=== PATIENT | male | born 1955 | race Hispanic/Latino ===

== ENCOUNTER 2018-01-04 08:06 | Emergency (ER) | payer SELFPAY ==
[2018-01-04] MEDS ORDERED: HYDROcodone/Acetaminophen 10/325 mg Tablet ONE (11:44)
[2018-01-04 12:04] LABS: #Eosinphils 0.1 thou/uL (0.0-0.7); #Lymphocytes 0.9 thou/uL (1.20-3.40); #Monocytes 0.6 thou/uL (0.11-0.59); #Neutrophils 7.4 thou/uL (1.40-6.50); %Basophils 0.2 % (0.0-1.0); %Eosinophils 0.6 % (0.0-10.0); %Lymphocytes 9.5 % (21.0-51.0); %Monocytes 6.8 % (0.0-10.0); %Neutrophils 82.9 % (42.0-75.0); Hemoglobin 16.2 g/dL (14.0-18.0); Mean Corpuscular HGB CONC 34.3 g/dL (32.0-36.0); Mean Corpuscular Hemoglobin 33.5 pg (27.0-31.0); Mean Corpuscular Volume 97.6 fL (78.0-98.0); Mean Platelet Volume 7.6 fL (7.4-10.4); Platelet Count 223 thou/uL (130-400); RBC Distribution Width 12.1 % (11.5-14.5); Red Blood Cell (RBC) Count 4.84 mill/uL (4.70-6.10)
[2018-01-04 12:26] LABS: ALT (SGPT) 33 U/L (8-55); AST (SGOT) 22 U/L (5-34); Albumin 3.9 g/dL (3.4-4.8); Alkaline Phosphatase 122 U/L (40-150); Anion Gap 15 mmol/L (10-20); BUN (Urea Nitrogen) 11 mg/dL (8.4-25.7); Bilirubin, Total 0.8 mg/dL (0.2-1.2); Calc. Creatinine Clearance 0 mL/min (70-130); Calcium 9.7 mg/dL (7.8-10.44); Carbon Dioxide 28 mmol/L (23-31); Chloride 97 mmol/L (98-107); Estimated GFR-MDRD Greater than 90; Globulin 3.6 g/dL (2.4-3.5); Glucose 334 mg/dL (80-115); Potassium 4.5 mmol/L (3.5-5.1); Protein, Total 7.5 g/dL (5.8-8.1); Sodium 135 mmol/L (136-145)
== END 2018-01-04 12:36 | disposition home or self-care (01) ==
LOC: ERS 08:06
DX: E11.40 Type 2 diabetes mellitus with diabetic neuropathy, unspecified (principal); E11.65 Type 2 diabetes mellitus with hyperglycemia
CPT/HCPCS: 36415; 80053; 85025; 99283

== ENCOUNTER 2019-06-21 21:46 | Emergency (ER) | payer OTHER ==
[2019-06-21] MEDS ORDERED: Ketorolac Tromethamine 30 MG/ML VIAL ONE (22:47)
[2019-06-21] MEDS ORDERED: Morphine 4 MG/ML VIAL ONE (22:47)
== END 2019-06-21 23:20 | disposition home or self-care (01) ==
LOC: ERS 21:46
DX: G89.29 Other chronic pain (principal); M25.512 Pain in left shoulder; E78.5 Hyperlipidemia, unspecified; I10 Essential (primary) hypertension; E11.40 Type 2 diabetes mellitus with diabetic neuropathy, unspecified; Z79.899 Other long term (current) drug therapy; Z79.4 Long term (current) use of insulin
CPT/HCPCS: 96372; 99283; J1885; J2270

== ENCOUNTER 2019-06-26 08:38 | Emergency (ER) | payer OTHER ==
[2019-06-26 09:34] LABS: #Eosinphils 0.1 thou/uL (0.0-0.7); #Lymphocytes 0.7 thou/uL (1.20-3.40); #Monocytes 0.7 thou/uL (0.11-0.59); #Neutrophils 8.8 thou/uL (1.40-6.50); %Basophils 0.1 % (0.0-1.0); %Eosinophils 1.1 % (0.0-10.0); %Lymphocytes 6.8 % (21.0-51.0); %Monocytes 6.4 % (0.0-10.0); %Neutrophils 85.6 % (42.0-75.0); Hemoglobin 14.2 g/dL (14.0-18.0); Mean Corpuscular HGB CONC 34.3 g/dL (32.0-36.0); Mean Corpuscular Hemoglobin 33.3 pg (27.0-31.0); Mean Corpuscular Volume 97.2 fL (78.0-98.0); Mean Platelet Volume 7.8 fL (7.4-10.4); Platelet Count 314 thou/uL (130-400); RBC Distribution Width 11.7 % (11.5-14.5); Red Blood Cell (RBC) Count 4.27 mill/uL (4.70-6.10); White Blood Cell (WBC) Count 10.2 thou/uL (4.8-10.8)
[2019-06-26 09:52] LABS: ALT (SGPT) 9 U/L (8-55); AST (SGOT) 10 U/L (5-34); Albumin 3.3 g/dL (3.4-4.8); Alkaline Phosphatase 113 U/L (40-110); Anion Gap 16 mmol/L (10-20); BUN (Urea Nitrogen) 15 mg/dL (8.4-25.7); Bilirubin, Total 0.6 mg/dL (0.2-1.2); Calc. Creatinine Clearance 0 mL/min (70-130); Calcium 8.6 mg/dL (7.8-10.44); Carbon Dioxide 28 mmol/L (23-31); Chloride 98 mmol/L (98-107); Estimated GFR-MDRD Greater than 90; Globulin 2.8 g/dL (2.4-3.5); Glucose 195 mg/dL (80-115); Potassium 4.5 mmol/L (3.5-5.1); Protein, Total 6.1 g/dL (5.8-8.1); Sodium 137 mmol/L (136-145)
[2019-06-26] MEDS ORDERED: predniSONE 20 MG TAB ONE (10:08)
== END 2019-06-26 10:18 | disposition home or self-care (01) ==
LOC: ERS 08:38
DX: M25.511 Pain in right shoulder (principal); G89.29 Other chronic pain; E11.9 Type 2 diabetes mellitus without complications; E78.5 Hyperlipidemia, unspecified; I10 Essential (primary) hypertension; Z79.899 Other long term (current) drug therapy; Z79.4 Long term (current) use of insulin
CPT/HCPCS: 36415; 80053; 82010; 85025; 93005; J7512

== ENCOUNTER 2020-06-04 19:35 | Inpatient (IN) | payer OTHER ==
[2020-06-04] MEDS ORDERED: Furosemide 100 MG/10 ML VIAL ONE (20:16)
[2020-06-04] MEDS ORDERED: Vancomycin 1 GM/200 ML BAG ONE (20:16)
[2020-06-04] MEDS ORDERED: Morphine 4 MG/ML VIAL ONE ×2 (20:17→21:42)
[2020-06-04 20:29] LABS: #Eosinphils 0.2 thou/uL (0.0-0.7); #Lymphocytes 0.7 thou/uL (1.20-3.40); #Monocytes 0.7 thou/uL (0.11-0.59); %Basophils 0.5 % (0.0-1.0); %Eosinophils 3.2 % (0.0-10.0); %Lymphocytes 9.2 % (21.0-51.0); %Monocytes 8.4 % (0.0-10.0); %Neutrophils 78.7 % (42.0-75.0); Hemoglobin 14.7 g/dL (14.0-18.0); Mean Corpuscular HGB CONC 34.3 g/dL (32.0-36.0); Mean Corpuscular Hemoglobin 32.9 pg (27.0-31.0); Mean Platelet Volume 8.2 fL (7.4-10.4); Platelet Count 312 thou/uL (130-400); RBC Distribution Width 12.2 % (11.5-14.5); Red Blood Cell (RBC) Count 4.46 mill/uL (4.70-6.10); White Blood Cell (WBC) Count 7.7 thou/uL (4.8-10.8)
[2020-06-04 20:31] LABS: Bilirubin Negative (Negative); Blood, Urine Negative (Negative); Clarity Clear (Clear); Glucose, Urine (Dipstick) 200 mg/dL (Negative); Ketone, Urine Negative (Negative); Leukocyte Negative Leu/uL (Negative); Nitrite Negative (Negative); Protein, Urine (Dipstick) Negative (Neg-Trace); Specific Gravity, Urine 1.006 (1.002-1.036); Urobilinogen Normal mg/dL (Less than 2)
--- NOTE | 2020-06-04 20:39 | RAD ---
RADIOGRAPH CHEST 1 VIEW: DATE: 06/04/2020 TIME: 8:29 PM HISTORY: 65-year-old male with dyspnea COMPARISON: none FINDINGS: There is an infiltrate at the right lung base. There is thickening of the right lateral lower pleural stripe contiguous with this. The rest of the visualized lung tian are grossly clear. No pneumothorax. IMPRESSION: 1) infiltrate at right base. Without prior studies for comparison, it is uncertain whether this is ac [place] or chronic. 2) adjacent right pleural reaction, either small pleural effusion or pleural thickening.
[2020-06-04 20:50] LABS: ALT (SGPT) 14 U/L (8-55); AST (SGOT) 15 U/L (5-34); Alkaline Phosphatase 123 U/L (40-110); Anion Gap 13 mmol/L (10-20); BUN (Urea Nitrogen) 12 mg/dL (8.4-25.7); Bilirubin, Total 0.3 mg/dL (0.2-1.2); CK (CPK) 67 U/L (30-200); Calc. Creatinine Clearance 0 mL/min (70-130); Calcium 8.5 mg/dL (7.8-10.44); Carbon Dioxide 34 mmol/L (23-31); Chloride 96 mmol/L (98-107); Globulin 2.9 g/dL (2.4-3.5); Glucose 248 mg/dL (80-115); Potassium 3.8 mmol/L (3.5-5.1); Protein, Total 5.9 g/dL (5.8-8.1); Sodium 139 mmol/L (136-145)
[2020-06-04] MEDS ORDERED: Cefepime 2 GM VIAL ONE (22:43)
[2020-06-04 23:01] LABS: SARS-CoV-2 NAA Rapid Test Not Detected (NotDetected)
[2020-06-04] MEDS ORDERED: Ondansetron ODT 4 MG TAB SL PRN (23:45)
[2020-06-04] MEDS ORDERED: Acetaminophen 325 MG TAB PO PRN (23:45)
[2020-06-04] MEDS ORDERED: Ondansetron PF 4 MG/2 ML Vial IVP PRN (23:45)
[2020-06-05 00:26] VITALS: BMI 33.8
[2020-06-05] MEDS ORDERED: Dextrose 50% Abboject 50 ML SYRINGE SLOW IVP PRN (00:26)
[2020-06-05] MEDS ORDERED: Dextrose 5% in Water 1,000 ML IV PRN (00:26)
[2020-06-05] MEDS: Morphine 2 MG/ML VIAL SLOW IVP PRN ×3 (01:38→20:23)
[2020-06-05] MEDS ORDERED: hydrALAZINE 20 MG/ML VIAL SLOW IVP PRN (02:04)
[2020-06-05] MEDS ORDERED: hydrALAZINE 20 MG/ML VIAL SLOW IVP SCH (02:15)
--- NOTE | 2020-06-05 02:57 | PDOC.HHP ---
Hospitalist HPI - History of Present Illness Bilateral leg pain History of Present Illness: This is a 65-year-old male patient with a history of type 2 diabetes mellitus with neuropathy, hypertension and hyperlipidemia who presents with worsening bilateral lower extremity pain. He notes that he has had neuropathy and bilateral lower extremity pain for several years only that in the past few days has become more swollen bilaterally red and more painful. Pain is diffuse in both legs bilaterally for 5-6 over 10 intensity and constant. He states it prevents him from being able to walk. He also had shortness of breath which was gradually worsening. He denied associated orthopnea paroxysmal nocturnal dyspnea. He notes having used gabapentin in the past for his leg pain but stopped. Given worsening of the pain in his lower extremities and swelling he came to the ED for further evaluation. He denied any associated fever, chest pain or dysuria. He denies any diarrhea however notes intermittent constipation. On arrival vitals showed BP of 211/107, pulse 97, respiratory 18, saturating 96% on room air. CBC was essentially within normal limits, BMP showed glucose of 248 otherwise not concerning. Urinalysis was negative, Covid test was negative. His chest x- ray revealed infiltrates in his right base with adjacent right pleural reactionpossible effusion. He was started on Lasix 80 mg, cefepime, vancomycin and levofloxacin. Hospitalist team consulted for admission. Hospitalist ROS - Review of Systems Constitutional: denies: fever, chills, sweats, weakness Respiratory: denies: cough, dry, shortness of breath, hemoptysis, SOB with excertion Cardiovascular: denies: chest pain, palpitations, orthopnea, paroxysmal noc. dyspnea Gastrointestinal: denies: nausea, vomiting, abdominal pain, diarrhea Genitourinary: denies: dysuria, frequency, incontinence Musculoskeletal: denies: neck pain, shoulder pain, arm pain, back pain Neurological: denies: weakness, numbness, incoordination All other systems reviewed; all pertinent +/- noted in HPI/Subj - Medication Medications: Active Medications Generic Name Dose Route Start Last Admin Trade Name Freq PRN Reason Stop Dose Admin Hydralazine HCl 10 mg 06/05/20 02:15 06/05/20 02:17 Hydralazine 20 Mg/Ml Vial SLOW IVP 06/05/20 04:15 10 mg NOW CRISTIN Administration Morphine Sulfate 2 mg 06/05/20 00:40 06/05/20 01:38 Morphine 2 Mg/Ml Vial SLOW IVP 2 mg Q6H PRN Administration Pain Medications: Currently refer to ambulatory [place]. Allergies: No known drug allergies Hospitalist History - Past Medical History Other Medical History: Diabetes, peripheral neuropathy - Past Surgical History Other Surgical History: Resection of part of his right lung - Family History Family History: reports: diabetes mellitus - Social History Smoking Status: Never smoker Alcohol: reports: Occassional Living Situation: With Family (This is his sister) - Exam General Appearance: awake alert General - other findings: In no acute distress. ENT: normocephalic atraumatic, no oropharyngeal lesions, moist mucosa Neck: supple, symmetric, no JVD, no thyromegaly Heart: RRR, no gallops, no rubs, murmur present (Ejection systolic) Respiratory: CTAB, no wheezes, no rales, no ronchi Gastrointestinal: soft, non-tender, non-distended, normal bowel sounds Extremities: no cyanosis, no clubbing, no edema Extremities - other findings: Bilateral lower extremity erythema. Occasional ulcers. Neurological: cranial nerve grossly intact, normal sensation to touch, no focal deficits Psychiatric: normal affect, normal behavior, A&O x 3 Hospitalist Results - Labs Result Diagrams: 06/05/20 05:28 06/06/20 05:25 Lab results: WBC 7.7 thou/uL (4.8-10.8) 06/04/20 20:09 Hgb 14.7 g/dL (14.0-18.0) 06/04/20 20:09 Hct 42.8 % (42.0-52.0) 06/04/20 20:09 MCV 96.0 fL (78.0-98.0) 06/04/20 20:09 Plt Count 312 thou/uL (130-400) 06/04/20 20:09 Neutrophils % 78.7 % (42.0-75.0) H 06/04/20 20:09 Sodium 139 mmol/L (136-145) 06/04/20 20:09 Potassium 3.8 mmol/L (3.5-5.1) 06/04/20 20:09 Chloride 96 mmol/L (98-107) L 06/04/20 20:09 Carbon Dioxide 34 mmol/L (23-31) H 06/04/20 20:09 BUN 12 mg/dL (8.4-25.7) 06/04/20 20:09 Creatinine 1.05 mg/dL (0.7-1.3) 06/04/20 20:09 Glucose 248 mg/dL (80-115) H 06/04/20 20:09 Lactic Acid 1.7 mmol/L (0.5-2.2) 06/04/20 20:09 Calcium 8.5 mg/dL (7.8-10.44) 06/04/20 20:09 Total Bilirubin 0.3 mg/dL (0.2-1.2) 06/04/20 20:09 AST 15 U/L (5-34) 06/04/20 20:09 ALT 14 U/L (8-55) 06/04/20 20:09 Alkaline Phosphatase 123 U/L (40-110) H 06/04/20 20:09 Creatine Kinase 67 U/L (30-200) 06/04/20 20:09 Serum Total Protein 5.9 g/dL (5.8-8.1) 06/04/20 20:09 Albumin 3.0 g/dL (3.4-4.8) L 06/04/20 20:09 Urine Ketones Negative mg/dL (Negative) 06/04/20 20:09 Urine Blood Negative (Negative) 06/04/20 20:09 Urine Nitrite Negative (Negative) 06/04/20 20:09 Ur Leukocyte Esterase Negative Mindy/uL (Negative) 06/04/20 20:09 Hospitalist H&P A/P - Plan Plan: This is a 65-year-old male patient with a history of diabetes mellitus presenting with ongoing bilateral lower leg erythema and swelling concerns for bilateral lower limb cellulitis associated with acute heart failure exacerbation.. Bilateral lower limb cellulitis. He has bilateral swelling and erythema with surface ulcers. Noted bilateral cellulitis is relatively where these do look like cellulitis. We will cover and on ceftriaxone for now Reevaluate in a.m. Follow-up on blood cultures. Possible right lower lobe pneumonia This could be atelectasis as well However covered on azithromycin for now Continue monitoring. Possible heart failure exacerbation Patient has no echo on file However has swelling of his feet bilaterally Diuresed 80 mg Lasix with improvement. We will order echocardiogram, BNP Monitor Cardiology consult if indicated. Diabetes mellitus Check A1c Correctional insulin Starting gabapentin for peripheral neuropathy Monitor glucose. VT prophylaxisLovenox CODE STATUSfull code
--- NOTE | 2020-06-05 03:21 | PDOC.FMACP ---
Advance Care Planning - Note Summary: Advanced Care Planning was discussed. The diagnosis, prognosis and goals of care were discussed. Patient surrogate decision-maker is his twin sister was in the room with him. CODE STATUS is full code
[2020-06-05 05:48] LABS: #Eosinphils 0.3 thou/uL (0.0-0.7); #Lymphocytes 0.6 thou/uL (1.20-3.40); #Monocytes 0.9 thou/uL (0.11-0.59); #Neutrophils 7.4 thou/uL (1.40-6.50); %Lymphocytes 6.6 % (21.0-51.0); %Monocytes 9.8 % (0.0-10.0); %Neutrophils 80.6 % (42.0-75.0); Hemoglobin 13.8 g/dL (14.0-18.0); Mean Corpuscular HGB CONC 34.9 g/dL (32.0-36.0); Mean Corpuscular Hemoglobin 33.8 pg (27.0-31.0); Mean Corpuscular Volume 96.8 fL (78.0-98.0); Mean Platelet Volume 8.2 fL (7.4-10.4); Platelet Count 280 thou/uL (130-400); RBC Distribution Width 12.1 % (11.5-14.5); Red Blood Cell (RBC) Count 4.08 mill/uL (4.70-6.10); White Blood Cell (WBC) Count 9.2 thou/uL (4.8-10.8)
[2020-06-05] MEDS ORDERED: Gabapentin 100 MG CAP PO SCH (09:00)
[2020-06-05] MEDS ORDERED: Furosemide 40 MG/4 ML VIAL SLOW IVP SCH (09:00)
[2020-06-05] MEDS: Enoxaparin Sodium 40 MG/0.4 ML SYRINGE SC SCH (09:42)
[2020-06-05] MEDS: cefTRIAXone\\ROCEPHIN 1 GM in Sodium Chloride 0.9% 100 ML IVPB SCH (09:44)
[2020-06-05] MEDS: Azithromycin 500 MG in Sodium Chloride 0.9% 250 ML 250 ML IVPB SCH (11:19)
--- NOTE | 2020-06-05 19:38 | PDOC.HOSPP ---
- Subjective Encounter Date: 06/05/20 Encounter Time: 19:20 Subjective: f/u for BLE cellulitis/edema on current Rocephin/Zithromax. States longstanding but progressive LE and hand pain in context of DM. - Objective Vital Signs & Weight: Vital Signs (12 hours) Temp Pulse Resp BP Pulse Ox 06/05/20 11:58 98.3 F 84 16 151/84 H 97 Weight Weight 216 lb 3.2 oz Result Diagrams: 06/05/20 05:28 06/04/20 20:09 Additional Labs: Accuchecks 06/05/20 06/05/20 06/05/20 16:23 12:01 06:04 POC Glucose 203 H 226 H 161 H Microbiology 06/04/20 20:09 Venous blood - Right Arm Blood Culture - Preliminary Specimen has been received and culture in progress. No Growth to date. 06/04/20 20:09 Venous blood - Left Arm Blood Culture - Preliminary Specimen has been received and culture in progress. No Growth to date. 06/04/20 20:09 Urine voided Urine Culture - Preliminary Streptococcus agalactiae Gp. B Laboratory Tests 06/04/20 06/04/20 06/05/20 20:09 21:35 05:28 Lactic Acid 1.7 B-Natriuretic Peptide 83.0 SARS-CoV-2 Rap RNA(RT-PCR) Not Detected Radiology Reviewed by me: Yes (Echo - EF 55%, diast dysfunction) Hospitalist ROS - Medication Medications: Active Medications Generic Name Dose Route Start Last Admin Trade Name Freq PRN Reason Stop Dose Admin Enoxaparin Sodium 40 mg 06/05/20 09:00 06/05/20 09:42 Enoxaparin Sodium 40 Mg/0.4 Ml Syringe SC 40 mg 0900 CRISTIN Administration Furosemide 40 mg 06/05/20 09:00 06/05/20 09:43 Furosemide 40 Mg/4 Ml Vial SLOW IVP 40 mg DAILY CRISTIN Administration Gabapentin 100 mg 06/05/20 09:00 06/05/20 09:44 Gabapentin 100 Mg Cap PO 100 mg DAILY CRISTIN Administration Azithromycin 500 mg/ Sodium 250 mls @ 250 mls/hr 06/05/20 09:00 06/05/20 11:19 Chloride IVPB 250 mls Q24HR CRISTIN Administration Ceftriaxone Sodium 1 gm/ 100 mls @ 200 mls/hr 06/05/20 09:00 06/05/20 09:44 Sodium Chloride IVPB 100 mls Q24HR CRISTIN Administration Morphine Sulfate 2 mg 06/05/20 00:40 06/05/20 09:43 Morphine 2 Mg/Ml Vial SLOW IVP 2 mg Q6H PRN Administration Pain - Exam General Appearance: NAD, awake alert Eye: PERRL, anicteric sclera ENT: normocephalic atraumatic, no oropharyngeal lesions Neck: supple, symmetric, no JVD, no thyromegaly, no lymphadenopathy Heart: RRR, no murmur, no gallops, no rubs, normal peripheral pulses Heart - other findings: S1, S2 Respiratory: CTAB, no wheezes, no rales, no ronchi, normal chest expansion Gastrointestinal: soft, non-tender, non-distended, normal bowel sounds, no palpable masses Extremities: no cyanosis, 1+ LE edema Skin - other findings: mild erythema of BLE's Neurological: cranial nerve grossly intact, no new deficit Musculoskeletal: normal tone, generalized weakness Psychiatric: normal affect, A&O x 3 Hosp A/P (1) Bilateral lower leg cellulitis Code(s): L03.116 - CELLULITIS OF LEFT LOWER LIMB; L03.115 - CELLULITIS OF RIGHT LOWER LIMB Status: Acute Plan: Continue Rocephin/Zithromax, serial monitoring, elevate LE's (2) DM type 2 with diabetic peripheral neuropathy Code(s): E11.42 - TYPE 2 DIABETES MELLITUS WITH DIABETIC POLYNEUROPATHY Status: Chronic Plan: Gabapentin 100mg po TID, Tramadol (3) CKD (chronic kidney disease), stage II Code(s): N18.2 - CHRONIC KIDNEY DISEASE, STAGE 2 (MILD) Status: Chronic Plan: Avoid nephrotoxic meds and limit contrast exposure (4) Diabetes mellitus, type II, insulin dependent Code(s): E11.9 - TYPE 2 DIABETES MELLITUS WITHOUT COMPLICATIONS; Z79.4 - FPC (CURRENT) USE OF INSULIN Status: Chronic Plan: Resume home insulin regimen, ISS, ADA, serial accuchecks (5) HTN (hypertension) Code(s): I10 - ESSENTIAL (PRIMARY) HYPERTENSION Status: Chronic Qualifiers: Hypertension type: essential hypertension Qualified Code(s): I10 - Essential (primary) hypertension - Plan continue antibiotics, out of bed/ambulate, DVT proph w/SCDs Stable overall Continue Torsemide Start Gabapentin 100mg TID Continue Tramadol OOB/ambulate Continue Rocephin/Zithromax AM lab: BMP, A1C
[2020-06-05] MEDS: Senokot S 8.6-50 MG TAB PO SCH (20:22)
[2020-06-05] MEDS: Gabapentin 100 MG CAP PO SCH (20:22)
[2020-06-05] MEDS: Atorvastatin Calcium 20 MG TAB PO SCH (20:22)
[2020-06-05] MEDS: Carvedilol 6.25 MG TAB PO SCH (20:23)
[2020-06-05] MEDS: traMADol HCl 50 MG TAB PO PRN (20:23)
[2020-06-05] MEDS ORDERED: Non-Formulary Item 1 EACH (Insulin Glargine,Hum.Rec.Anlog [Lantus Solostar] 100 UNIT/ML P SQ SCH (21:00)
[2020-06-05] MEDS ORDERED: Pregabalin 50 MG CAP PO SCH (21:00)
[2020-06-05] MEDS: Insulin Glargine 10 UNITS in Pre-Filled Syringe 1 EACH SC SCH (22:50)
[2020-06-05] MEDS ORDERED: HumaLOG 300 UNITS/3 ML VIAL SC PRN (23:00)
[2020-06-06] MEDS: traMADol HCl 50 MG TAB PO PRN ×2 (03:48→20:46)
[2020-06-06 05:44] LABS: Hemoglobin A1c 7.8 % (4.0-6.0)
[2020-06-06] MEDS: HumaLOG 300 UNITS/3 ML VIAL SC PRN ×3 (05:52→17:02)
[2020-06-06 06:04] LABS: Anion Gap 12 mmol/L (10-20); BUN (Urea Nitrogen) 10 mg/dL (8.4-25.7); Calc. Creatinine Clearance 155 mL/min (70-130); Calcium 8.1 mg/dL (7.8-10.44); Carbon Dioxide 29 mmol/L (23-31); Glucose 182 mg/dL (80-115); Potassium 3.8 mmol/L (3.5-5.1); Sodium 136 mmol/L (136-145)
[2020-06-06 06:10] LABS: Chloride 99 mmol/L (98-107)
[2020-06-06] MEDS ORDERED: Non-Formulary Item 1 EACH (Insulin Glargine,Hum.Rec.Anlog [Lantus Solostar] 100 UNIT/ML P SQ SCH (09:00)
[2020-06-06] MEDS: cefTRIAXone\\ROCEPHIN 1 GM in Sodium Chloride 0.9% 100 ML IVPB SCH (09:30)
[2020-06-06] MEDS: Enoxaparin Sodium 40 MG/0.4 ML SYRINGE SC SCH (09:31)
[2020-06-06] MEDS: Torsemide 20 MG TAB PO SCH (09:31)
[2020-06-06] MEDS: Carvedilol 6.25 MG TAB PO SCH ×2 (09:31→20:46)
[2020-06-06] MEDS: Senokot S 8.6-50 MG TAB PO SCH ×2 (09:31→20:45)
[2020-06-06] MEDS: Gabapentin 100 MG CAP PO SCH ×3 (09:31→20:45)
[2020-06-06] MEDS: Insulin Glargine 10 UNITS in Pre-Filled Syringe 1 EACH SC SCH ×2 (09:32→20:46)
[2020-06-06] MEDS: Azithromycin 500 MG in Sodium Chloride 0.9% 250 ML 250 ML IVPB SCH (10:59)
--- NOTE | 2020-06-06 16:15 | PDOC.HOSPP ---
- Subjective Encounter Date: 06/06/20 Encounter Time: 16:05 Subjective: f/u for BLE cellulitis and DM peripheral neuropathy. Receiving Rocephin/Zithromax/Gabapentin. Overall feeling much better. - Objective Vital Signs & Weight: Vital Signs (12 hours) Temp Pulse Resp BP BP Pulse Ox 06/06/20 15:09 98.1 F 75 16 145/81 H 96 06/06/20 10:52 98.1 F 74 16 159/92 H 96 06/06/20 09:31 161/82 H 06/06/20 08:00 96 06/06/20 07:21 98.1 F 82 16 161/82 H 94 L 06/06/20 04:56 97.9 F 74 18 152/83 H 97 Weight Weight 216 lb 3.2 oz I&O: 06/05/20 06/06/20 06/07/20 06:59 06:59 06:59 Intake Total 3130 Balance 3130 Result Diagrams: 06/05/20 05:28 06/06/20 05:25 Additional Labs: Accuchecks 06/06/20 06/06/20 06/06/20 15:11 10:54 05:00 POC Glucose 215 H 169 H 201 H 06/05/20 06/05/20 20:57 16:23 POC Glucose 164 H 203 H Radiology Reviewed by me: Yes (Echo - EF 55-60%) Hospitalist ROS - Medication Medications: Active Medications Generic Name Dose Route Start Last Admin Trade Name Freq PRN Reason Stop Dose Admin Atorvastatin Calcium 20 mg 06/05/20 21:00 06/05/20 20:22 Atorvastatin Calcium 20 Mg Tab PO 20 mg HS CRISTIN Administration Carvedilol 6.25 mg 06/05/20 21:00 06/06/20 09:31 Carvedilol 6.25 Mg Tab PO 6.25 mg BID CRISTIN Administration Enoxaparin Sodium 40 mg 06/05/20 09:00 06/06/20 09:31 Enoxaparin Sodium 40 Mg/0.4 Ml Syringe SC 40 mg 0900 CRISTIN Administration Gabapentin 100 mg 06/05/20 21:00 06/06/20 15:03 Gabapentin 100 Mg Cap PO 100 mg TID CRISTIN Administration Azithromycin 500 mg/ Sodium 250 mls @ 250 mls/hr 06/05/20 09:00 06/06/20 10:59 Chloride IVPB 250 mls Q24HR CRISTIN Administration Ceftriaxone Sodium 1 gm/ 100 mls @ 200 mls/hr 06/05/20 09:00 06/06/20 09:30 Sodium Chloride IVPB 100 mls Q24HR CRISTIN Administration Insulin Glargine 10 units/ 0.1 mls @ 0 mls/hr 06/05/20 21:00 06/05/20 22:50 Miscellaneous Medication SC 0.1 mls HS CRISTIN Administration Insulin Glargine 10 units/ 0.1 mls @ 0 mls/hr 06/06/20 09:00 06/06/20 09:32 Miscellaneous Medication SC 0.1 mls QAM CRISTIN Administration Insulin Human Lispro 0 units 06/05/20 23:00 06/06/20 12:14 Humalog 300 Units/3 Ml Vial SC 2 unit .MODERATE SLIDING SC PRN Administration MODERATE SLIDING SCALE Protocol Morphine Sulfate 2 mg 06/05/20 00:40 06/05/20 20:23 Morphine 2 Mg/Ml Vial SLOW IVP 2 mg Q6H PRN Administration Pain Senna/Docusate Sodium 1 tab 06/05/20 21:00 06/06/20 09:31 Senokot S 8.6-50 Mg Tab PO 1 tab BID CRISTIN Administration Torsemide 40 mg 06/06/20 09:00 06/06/20 09:31 Torsemide 20 Mg Tab PO 40 mg DAILY CRISTIN Administration Tramadol HCl 50 mg 06/05/20 19:38 06/06/20 03:48 Tramadol Hcl 50 Mg Tab PO 50 mg Q6H PRN Administration Pain - Exam General Appearance: NAD, awake alert Eye: PERRL, anicteric sclera ENT: normocephalic atraumatic, no oropharyngeal lesions Neck: supple, symmetric, no JVD, no thyromegaly, no lymphadenopathy Heart: RRR, no murmur, no gallops, no rubs, normal peripheral pulses Heart - other findings: S1, S2 Respiratory: CTAB, no wheezes, no rales, no ronchi, normal chest expansion, no tachypnea Gastrointestinal: soft, non-tender, non-distended, normal bowel sounds, no palpable masses Extremities: no cyanosis, no clubbing Extremities - other findings: BLE with mild edema Skin: normal turgor Skin - other findings: scaling plaques on BLE's Neurological: cranial nerve grossly intact, no new deficit Musculoskeletal: normal tone, normal strength Psychiatric: normal affect, A&O x 3 Hosp A/P (1) Bilateral lower leg cellulitis Code(s): L03.116 - CELLULITIS OF LEFT LOWER LIMB; L03.115 - CELLULITIS OF RIGHT LOWER LIMB Status: Acute Plan: Improving, continue Rocephin/Zithromax, elevate LE's while in bed/seated (2) DM type 2 with diabetic peripheral neuropathy Code(s): E11.42 - TYPE 2 DIABETES MELLITUS WITH DIABETIC POLYNEUROPATHY Status: Chronic Plan: Continue Gabapentin/Tramadol (3) CKD (chronic kidney disease), stage II Code(s): N18.2 - CHRONIC KIDNEY DISEASE, STAGE 2 (MILD) Status: Chronic (4) Diabetes mellitus, type II, insulin dependent Code(s): E11.9 - TYPE 2 DIABETES MELLITUS WITHOUT COMPLICATIONS; Z79.4 - [facility] (CURRENT) USE OF INSULIN Status: Chronic Plan: A1C = 7.8, ISS, resume home DM regimen (5) HTN (hypertension) Code(s): I10 - ESSENTIAL (PRIMARY) HYPERTENSION Status: Chronic Qualifiers: Hypertension type: essential hypertension Qualified Code(s): I10 - Essential (primary) hypertension - Plan plan discussed w/ family, continue antibiotics, rn social work, out of bed/ambulate, DVT proph w/SCDs Stable overall Continue Torsemide Start Gabapentin 100mg TID Continue Tramadol OOB/ambulate Continue Rocephin/Zithromax another 24h then de-escalate Likely home in 24h
[2020-06-06] MEDS: Atorvastatin Calcium 20 MG TAB PO SCH (20:46)
[2020-06-07 00:18] VITALS: TEMP 98.1
[2020-06-07] MEDS: Torsemide 20 MG TAB PO SCH (09:06)
[2020-06-07] MEDS: Enoxaparin Sodium 40 MG/0.4 ML SYRINGE SC SCH (09:06)
[2020-06-07] MEDS: Azithromycin 500 MG in Sodium Chloride 0.9% 250 ML 250 ML IVPB SCH (09:06)
[2020-06-07] MEDS: Gabapentin 100 MG CAP PO SCH (09:07)
[2020-06-07] MEDS: Insulin Glargine 10 UNITS in Pre-Filled Syringe 1 EACH SC SCH (09:07)
[2020-06-07] MEDS: Senokot S 8.6-50 MG TAB PO SCH (09:07)
[2020-06-07] MEDS: Carvedilol 6.25 MG TAB PO SCH (09:07)
[2020-06-07] MEDS: traMADol HCl 50 MG TAB PO PRN (09:14)
[2020-06-07] MEDS: cefTRIAXone\\ROCEPHIN 1 GM in Sodium Chloride 0.9% 100 ML IVPB SCH (09:15)
[2020-06-07 09:22] VITALS: BP 138/73
--- NOTE | 2020-06-07 13:56 | PQF ---
CLINICAL DOCUMENTATION CLARIFICATION FORM: Dear Dr. Carranza Date: 06/07/20 Please exercise your independent, professional judgment in responding to the clarification form. Clinical indicators are provided on the bottom of this form for your review. Please check appropriate box(es) to clarify if the following diagnosis has been ruled in our ruled out: PNEUMONIA [ ] Ruled in diagnosis [ ] Continue to treat [ ] Resolved [ x ] Ruled out diagnosis [ ] Improving [ ] Cannot rule out diagnosis [ ] Other diagnosis [ ] Unable to determine In addition, please specify: Present on Admission (POA): [ ] Yes [ x ] No [ ] Unable to determine For continuity of documentation, please document condition throughout progress notes and discharge summary. Thank You. To be completed by CDI/Coding staff for physician review: CLINICAL INDICATORS - SIGNS / SYMPTOMS / LABS / RESULTS AND LOCATION IN MR ER NOTE: "PNEUMONIA" H&P 06/05 ([facility]): "SHORTNESS OF BREATH GRADUALLY WORSENING" CHEST X-RAY REVEALED INFILTRATES IN HIS RIGHT BASE WITH ADJACENT RIGHT PLEURAL REACTION- POSSIBLE EFFUSION" RISK FACTORS / RESULTS AND LOCATION IN MR H/O DIABETES (H&P) H/O RESECTION OF RIGHT LUNG (H&P) TREATMENTS / RESULTS AND LOCATION IN MR IV CEFEPIME (ER) IV LEVAQUIN (ER) IV VANCOMYCIN (ER) IV AZITHROMYCIN (06/05-PRESENT) IV ROCEPHIN (06/05-PRESENT) CDS Signature: Rosemary Conti RN Phone #: [phone] Date: 06/07/20 DENISSE
--- NOTE | 2020-06-08 07:59 | DIS ---
DATE OF ADMISSION: 06/04/2020 DATE OF DISCHARGE: 06/07/2020 DISCHARGE DIAGNOSES: 1. Bilateral lower extremity cellulitis, improved. 2. Diabetic peripheral neuropathy. 3. Chronic kidney disease, stage 2. 4. Diabetes mellitus, type 2, insulin dependent. 5. Hypertension. CONSULTATIONS: None. PERTINENT LABORATORY AND X-RAY FINDINGS: Creatinine ranged between 0.67 to 1.05. Hemoglobin A1c 7.8. Lactic acid level 1.7. Total CK 67. BNP 83. CBC showed a white blood cell count ranging between 7.7 to 9.2. COVID-19 PCR not detected on 06/04/2020. Urine culture dated 06/04/2020, showed 25,000 to 50,000 colonies of Streptococcus agalactiae group B, likely contaminant. Blood cultures x2 dated 06/04/2020, showed no growth at 48 hours. Portable chest x-ray dated 06/04/2020, showed questionable right basilar infiltrate versus atelectasis or scarring. 2D transthoracic echocardiogram dated 06/05/2020, showed ejection fraction of 55% to 60%. Diastolic dysfunction. [id number] aortic stenosis. Stcv-[id number] mitral regurgitation. HOSPITAL COURSE: The patient was admitted to the medical floor after initially presenting with bilateral lower extremity leg pain with swelling and redness. The patient with history of diabetic peripheral neuropathy and chronic lower extremity pain, treated with gabapentin in the past. The patient was evaluated and noted with evidence of bilateral lower extremity cellulitis in conjunction with lower extremity edema. The patient was placed on IV Rocephin and azithromycin and given sequential compression devices. The patient was also initiated on gabapentin 100 mg t.i.d. and tramadol 50 mg q.i.d. The patient overall clinically improved with general supportive management, IV antibiotic therapy, and pain control. The patient may need additional titration of his gabapentin on an ongoing basis after discharge. I have examined the patient at the time of discharge and discussed followup instructions. The patient verbalizes understanding and in agreement and ready for discharge on 06/07/2020. DISCHARGE MEDICATIONS: 1. Augmentin 500 mg one tablet p.o. b.i.d. x7 days. 2. Coreg 6.25 mg p.o. b.i.d. 3. Metformin 1000 mg p.o. b.i.d. 4. Lantus 10 units subcutaneously at bedtime. 5. Lipitor 20 mg p.o. daily. 6. Torsemide 40 mg p.o. daily. 7. Tramadol 50 mg p.o. q.6 hours p.r.n. pain. 8. Gabapentin 100 mg p.o. t.i.d. FOLLOWUP: The patient may follow up with his primary care provider, Sondra Harris, within 7 days of discharge. CONDITION ON DISCHARGE: Stable. ACTIVITY: Ad-riley. DIET: ADA and heart healthy. CODE STATUS: Full. DISPOSITION: Home, 06/07/2020. TIME SPENT: Total time preparing and coordinating discharge, 33 minutes. Job ID: [id number]
--- NOTE | 2020-06-09 06:44 | PQF ---
CLINICAL DOCUMENTATION CLARIFICATION FORM: Dear DrSandrine: Osman Carranza Date / Time: 06/09/2020 06 Please exercise your independent, professional judgment in responding to the clarification form. Clinical indicators are provided on the bottom of this form for your review In your clinical opinion based on clinical finding below, can you please identify the etiology of Cellulitis if due to: Please check appropriate box(s): [ ] Due to Peripheral Neuropathy [ ] Due to Diabetes [ x ] Other diagnosis, please specify _edema [ ] Unable to determine Physician Signature: Date/Time: For continuity of documentation, please document condition throughout progress notes and discharge summary. Thank You. To be completed by CDI/Coding staff for physician review: Present Clinical Indicators - Signs / Symptoms / Labs Results and Location in Medical Record [X] WBC 7.7, Hct 14.7, hct 42.8Neutrophils 78.7, Glucose 248 Laboratory 06/04 [X] BP 211/107, Pulse 95, Resp 18, Temp 98.5 Vital signs 06/04 [X] Worsening bilateral lower extremity pain H&P p1 06/04 Dr Kenny [X] Swelling of lower extremities H&P p1 06/04 Dr Kenny [X] Bilateral lower limb cellulitis H&P p4 06/04 Dr Kenny Present Risk Factors Results and Location in Medical Record [X] 65 year-old Male H&P p1 06/04 Dr Kenny [X] DM with Neuropathy H&P p1 06/04 Dr Kenny [X] HTN H&P p1 06/04 Dr Kenny Present Treatments Results and Location in Medical Record [X] IV Vancomycin 1 gm AUG 20 [X] IV Levaquin 750 mg AUG 20 [X] IV Morphine 4 gm AUG 20 [X] Humulog 4 units AUG 20 [X] Insulin Glarhine 10 units AUG 20 [X] Monitor Glucose H&P p4 06/04 Dr Kenny CDS/Core Cutter And Reamer Signature: Aimee Zainab Diaz Phone #: ext [phone] Date/Time: 06/09/2020 0643 This is a permanent part of the Medical Record [facility]
--- NOTE | 2020-06-09 06:46 | PQF ---
CLINICAL DOCUMENTATION CLARIFICATION FORM: Dear DrSandrine: Osman Carranza Date / Time: 06/09/2020 0626 Please exercise your independent, professional judgment in responding to the clarification form. Clinical indicators are provided on the bottom of this form for your review Please check appropriate box(es): HEART FAILURE: A. ACUITY [ ] Acute [ ] Acute on Chronic [ ] Chronic B. TYPE: [ ] Systolic / HFrEF [ ] Diastolic / HFpEF [ ] Combined Systolic / Diastolic [ x ] Other diagnosis __CKD II, HTN [ ] Unable to determine In addition, please specify: Present on Admission (POA): [ x ] Yes [ ] No [ ] Unable to determine Physician Signature: Date/Time: For continuity of documentation, please document condition throughout progress notes and discharge summary. Thank You. To be completed by CDI/Coding staff for physician review: Present Clinical Indicators - Signs / Symptoms / Labs Results and Location in Medical Record [X] BNP 83.0 Laboratory 06/04 [X] BP 211/107, Pulse 95, Resp 18, Temp 98.5 Vital signs 06/04 [X] Echocardiohram: EF 55-60% Imaging 06/05 Dr Burrows [X] Worsening bilateral lower extremity pain H&P p1 06/04 Dr Kenny [X] Swelling of lower extremities H&P p1 06/04 Dr Kenny [X] Possible heart failure exacerbation H&P p4 06/04 Dr Kenny Present Risk Factors Results and Location in Medical Record [X] 65 year-old Male H&P p1 06/04 Dr Kenny [X] DM with Neuropathy H&P p1 06/04 Dr Kenny [X] HTN H&P p1 06/04 Dr Kenny [X] CKD stage 2 PN 06/05 Present Treatments Results and Location in Medical Record [X] IV Lasix 40 mg AUG 20 [X] Monitor echocargiogram , BNP H&P p4 06/04 Dr Kenny [X] Carvedilol 6.25mg Oral AUG 20 CDS/Senior Developer Signature: Aimee Diaz Phone #: ext [phone] Date/Time: 06/09/2020 6548 This is a permanent part of the Medical Record [facility]
== END 2020-06-07 14:45 | disposition home or self-care (01) | DRG 603 ==
LOC: ERS 19:35 → SURG B 22:49
PROVIDERS: ADMIT Student in an Organized Health Care Education/Training Program; ATTEND Student in an Organized Health Care Education/Training Program
DX: L03.116 Cellulitis of left lower limb (principal); L03.115 Cellulitis of right lower limb; Z20.828 Contact with and (suspected) exposure to other viral communicable diseases; E11.42 Type 2 diabetes mellitus with diabetic polyneuropathy; E11.22 Type 2 diabetes mellitus with diabetic chronic kidney disease; N18.2 Chronic kidney disease, stage 2 (mild); I12.9 Hypertensive chronic kidney disease with stage 1 through stage 4 chronic kidney disease, or unspecified chronic kidney disease; Z83.3 Family history of diabetes mellitus; Z79.899 Other long term (current) drug therapy; Z79.4 Long term (current) use of insulin
CPT/HCPCS: 36415; 36416; 71045; 80048; 80053; 81003; 82550; 83036; 83605; 83880; 85007; 85025; 85027; 87040; 87077; 87086; 93005; 93306; J0360; J0456; J0692; J0696; J1650; J1815; J1940; J1956; J2270; J3370; J3490; J7050; U0002

== ENCOUNTER 2020-06-18 12:50 | Emergency (ER) | payer OTHER ==
[2020-06-18 13:58] LABS: #Eosinphils 0.2 thou/uL (0.0-0.7); #Lymphocytes 0.6 thou/uL (1.20-3.40); #Monocytes 0.4 thou/uL (0.11-0.59); #Neutrophils 6.9 thou/uL (1.40-6.50); %Basophils 0.2 % (0.0-1.0); %Eosinophils 2.6 % (0.0-10.0); %Lymphocytes 7.7 % (21.0-51.0); %Monocytes 5.3 % (0.0-10.0); %Neutrophils 84.3 % (42.0-75.0); Hemoglobin 14.7 g/dL (14.0-18.0); Mean Corpuscular HGB CONC 34.7 g/dL (32.0-36.0); Mean Corpuscular Hemoglobin 33.5 pg (27.0-31.0); Mean Corpuscular Volume 96.7 fL (78.0-98.0); Mean Platelet Volume 8.6 fL (7.4-10.4); Platelet Count 298 thou/uL (130-400); RBC Distribution Width 12.3 % (11.5-14.5); Red Blood Cell (RBC) Count 4.37 mill/uL (4.70-6.10); White Blood Cell (WBC) Count 8.2 thou/uL (4.8-10.8)
[2020-06-18] MEDS ORDERED: Furosemide 40 MG/4 ML VIAL ONE (14:00)
[2020-06-18 14:21] LABS: ALT (SGPT) 16 U/L (8-55); AST (SGOT) 21 U/L (5-34); Albumin 3.1 g/dL (3.4-4.8); Alkaline Phosphatase 133 U/L (40-110); Anion Gap 11 mmol/L (10-20); BUN (Urea Nitrogen) 13 mg/dL (8.4-25.7); Bilirubin, Total 0.2 mg/dL (0.2-1.2); Calc. Creatinine Clearance 0 mL/min (70-130); Calcium 8.5 mg/dL (7.8-10.44); Carbon Dioxide 35 mmol/L (23-31); Chloride 97 mmol/L (98-107); Globulin 3.2 g/dL (2.4-3.5); Glucose 191 mg/dL (80-115); Protein, Total 6.3 g/dL (5.8-8.1); Sodium 139 mmol/L (136-145)
--- NOTE | 2020-06-18 14:25 | RAD ---
PORTABLE CHEST: HISTORY: CHF exacerbation. Lower extremity edema. COMPARISON: 06/04/2020. FINDINGS: Opacification of the right lung base consistent with right effusion and right basilar atelectasis and /or infiltrate, similar in appearance to the prior exam. Left lung remains clear and unchanged. Mil d cardiomegaly is stable. Vasculature is within normal range. IMPRESSION: Right basilar findings are stable from prior exam. POS: AH
== END 2020-06-18 16:22 | disposition home or self-care (01) ==
LOC: ERS 12:50
DX: R60.0 Localized edema (principal); E11.9 Type 2 diabetes mellitus without complications; I10 Essential (primary) hypertension; Z79.4 Long term (current) use of insulin; Z79.899 Other long term (current) drug therapy
CPT/HCPCS: 36415; 71045; 80053; 83605; 83880; 84484; 85025; 87040; 96374; J1940

== ENCOUNTER 2020-12-03 08:57 | Outpatient (CLI) | payer OTHER | END 2020-12-03 08:58 | disposition home or self-care (01) | LOC: BICULT 08:57 | PROVIDERS: ATTEND Physician Assistant Medical | DX: R74.8 Abnormal levels of other serum enzymes (principal); K76.0 Fatty (change of) liver, not elsewhere classified; K80.20 Calculus of gallbladder without cholecystitis without obstruction | CPT/HCPCS: 76705 ==

== ENCOUNTER 2022-04-04 12:24 | Inpatient (IN) | payer OTHER, MEDICAID ==
[2022-04-04 12:55] LABS: #Eosinphils 0.2 thou/uL (0.0-0.7); #Lymphocytes 0.8 thou/uL (1.20-3.40); #Monocytes 0.8 thou/uL (0.11-0.59); #Neutrophils 7.6 thou/uL (1.40-6.50); %Basophils 0.1 % (0.0-1.0); %Eosinophils 2.4 % (0.0-10.0); %Lymphocytes 8.6 % (21.0-51.0); %Monocytes 8.3 % (0.0-10.0); %Neutrophils 80.6 % (42.0-75.0); Hemoglobin 16.3 g/dL (14.0-18.0); Mean Corpuscular HGB CONC 32.8 g/dL (32.0-36.0); Mean Corpuscular Hemoglobin 32.2 pg (27.0-31.0); Mean Corpuscular Volume 98.1 fl (78.0-98.0); Mean Platelet Volume 8.2 fL (7.4-10.4); Platelet Count 339 thou/uL (130-400); RBC Distribution Width 12.4 % (11.5-14.5); Red Blood Cell (RBC) Count 5.04 mill/uL (4.70-6.10); White Blood Cell (WBC) Count 9.5 thou/uL (4.8-10.8)
[2022-04-04 13:27] LABS: ALT (SGPT) 10 U/L (8-55); AST (SGOT) 12 U/L (5-34); Albumin 2.5 g/dL (3.4-4.8); Alkaline Phosphatase 138 U/L (40-110); Anion Gap 8 mmol/L (10-20); BUN (Urea Nitrogen) 14 mg/dL (8.4-25.7); Bilirubin, Total 0.4 mg/dL (0.2-1.2); Calc. Creatinine Clearance 0 mL/min (70-130); Calcium 8.2 mg/dL (7.8-10.44); Carbon Dioxide 33 mmol/L (23-31); Chloride 101 mmol/L (98-107); Estimated GFR 98; Globulin 2.8 g/dL (2.4-3.5); Glucose 221 mg/dL (80-115); Lipase 7 U/L (8-78); Magnesium 1.7 mg/dL (1.6-2.6); Potassium 3.9 mmol/L (3.5-5.1); Protein, Total 5.3 g/dL (5.8-8.1); Sodium 138 mmol/L (136-145)
[2022-04-04] MEDS ORDERED: Acetaminophen 325 MG TAB PO PRN (16:21)
[2022-04-04] MEDS ORDERED: Dextrose 50% Abboject 50 ML SYRINGE SLOW IVP PRN (16:30)
[2022-04-04] MEDS ORDERED: Dextrose 5% in Water 1,000 ML IV PRN (16:30)
[2022-04-04] MEDS ORDERED: Carvedilol 6.25 MG TAB PO SCH (17:00)
[2022-04-04 17:11] LABS: Troponin I 0.011 ng/mL (< 0.028)
[2022-04-04 19:24] LABS: Troponin I Less than 0.010 ng/mL (< 0.028)
[2022-04-04] MEDS: traMADol HCl 50 MG TAB PO PRN (21:24)
[2022-04-04] MEDS: Apixaban 5 MG TAB PO SCH (21:25)
[2022-04-04] MEDS: Atorvastatin Calcium 20 MG TAB PO SCH (21:25)
[2022-04-04] MEDS: Amiodarone 200 MG TAB PO SCH (21:25)
[2022-04-04] MEDS: Carvedilol 25 MG TAB PO SCH (21:25)
[2022-04-04] MEDS: HumaLOG 300 UNITS/3 ML VIAL SC PRN (21:27)
[2022-04-04] MEDS: Diltiazem 125 MG in Sodium Chloride 0.9% 100 ML IVPB SCH (22:06)
[2022-04-05] MEDS: Amiodarone 200 MG TAB PO SCH (08:09)
[2022-04-05] MEDS: Apixaban 5 MG TAB PO SCH ×2 (08:09→20:52)
[2022-04-05] MEDS: Carvedilol 25 MG TAB PO SCH ×2 (08:09→17:47)
[2022-04-05] MEDS: Torsemide 20 MG TAB PO SCH (08:10)
[2022-04-05] MEDS: Venlafaxine HCl XR 75 MG CAP PO SCH (08:11)
[2022-04-05] MEDS ORDERED: FLU VACC QS2022-23(65YR UP)/PF 240 MCG/0.7 ML SYRINGE IM ONE (09:00)
[2022-04-05] MEDS ORDERED: Torsemide 20 MG TAB PO SCH (09:00)
[2022-04-05] MEDS: Diltiazem 125 MG in Sodium Chloride 0.9% 100 ML IVPB SCH (13:57)
[2022-04-05] MEDS: HumaLOG 300 UNITS/3 ML VIAL SC PRN (17:46)
[2022-04-05] MEDS: traMADol HCl 50 MG TAB PO PRN (17:51)
[2022-04-05] MEDS: Atorvastatin Calcium 20 MG TAB PO SCH (20:51)
[2022-04-06 05:02] LABS: #Eosinphils 0.3 thou/uL (0.0-0.7); #Lymphocytes 0.7 thou/uL (1.20-3.40); #Monocytes 0.9 thou/uL (0.11-0.59); #Neutrophils 6.3 thou/uL (1.40-6.50); %Basophils 0.1 % (0.0-1.0); %Eosinophils 3.3 % (0.0-10.0); %Lymphocytes 8.1 % (21.0-51.0); %Monocytes 10.5 % (0.0-10.0); %Neutrophils 77.9 % (42.0-75.0); Hemoglobin 14.6 g/dL (14.0-18.0); Mean Corpuscular HGB CONC 32.7 g/dL (32.0-36.0); Mean Corpuscular Hemoglobin 32.5 pg (27.0-31.0); Mean Corpuscular Volume 99.3 fl (78.0-98.0); Mean Platelet Volume 8.3 fL (7.4-10.4); Platelet Count 290 thou/uL (130-400); RBC Distribution Width 12.4 % (11.5-14.5); White Blood Cell (WBC) Count 8.1 thou/uL (4.8-10.8)
[2022-04-06 05:11] LABS: Anion Gap 9 mmol/L (10-20); BUN (Urea Nitrogen) 17 mg/dL (8.4-25.7); Calc. Creatinine Clearance 139 mL/min (70-130); Calcium 8.3 mg/dL (7.8-10.44); Carbon Dioxide 33 mmol/L (23-31); Chloride 99 mmol/L (98-107); Estimated GFR 99; Glucose 171 mg/dL (80-115); Potassium 3.7 mmol/L (3.5-5.1); Sodium 137 mmol/L (136-145)
[2022-04-06] MEDS: Apixaban 5 MG TAB PO SCH (09:12)
[2022-04-06] MEDS: Carvedilol 25 MG TAB PO SCH (09:12)
[2022-04-06] MEDS: Torsemide 20 MG TAB PO SCH (09:12)
[2022-04-06] MEDS: Venlafaxine HCl XR 75 MG CAP PO SCH (09:12)
[2022-04-06] MEDS: HumaLOG 300 UNITS/3 ML VIAL SC PRN ×2 (11:48→17:00)
[2022-04-06] MEDS: traMADol HCl 50 MG TAB PO PRN (20:30)
[2022-04-06] MEDS: Atorvastatin Calcium 20 MG TAB PO SCH (20:30)
[2022-04-07 05:08] LABS: #Eosinphils 0.2 thou/uL (0.0-0.7); #Lymphocytes 0.6 thou/uL (1.20-3.40); #Monocytes 0.8 thou/uL (0.11-0.59); %Eosinophils 2.6 % (0.0-10.0); %Lymphocytes 7.9 % (21.0-51.0); %Monocytes 10.2 % (0.0-10.0); %Neutrophils 79.3 % (42.0-75.0); Hemoglobin 13.8 g/dL (14.0-18.0); Mean Corpuscular Hemoglobin 31.3 pg (27.0-31.0); Mean Corpuscular Volume 97.7 fl (78.0-98.0); Mean Platelet Volume 8.1 fL (7.4-10.4); Platelet Count 275 thou/uL (130-400); RBC Distribution Width 12.4 % (11.5-14.5); White Blood Cell (WBC) Count 7.5 thou/uL (4.8-10.8)
[2022-04-07 05:24] LABS: Anion Gap 8 mmol/L (10-20); BUN (Urea Nitrogen) 13 mg/dL (8.4-25.7); Calc. Creatinine Clearance 160 mL/min (70-130); Carbon Dioxide 33 mmol/L (23-31); Chloride 100 mmol/L (98-107); Estimated GFR 103; Glucose 149 mg/dL (80-115); Potassium 3.2 mmol/L (3.5-5.1); Sodium 138 mmol/L (136-145)
[2022-04-07] MEDS ORDERED: Heparin 10,000 UNITS/ 10 ML VIAL ONE (07:01)
[2022-04-07] MEDS ORDERED: Heparin 25,000 units/D5W 500 ML ONE (07:01)
[2022-04-07] MEDS ORDERED: Potassium Chloride 20 MEQ TAB PO SCH (10:15)
[2022-04-07] MEDS ORDERED: SUGAMMADEX SODIUM 200 MG/2 ML VIAL ONE (11:06)
[2022-04-07] MEDS ORDERED: Famotidine/PF 20 mg/2ml Vial ONE (11:06)
[2022-04-07] MEDS ORDERED: fentaNYL Citrate/PF 100 MCG/2 ML SYRINGE ONE (11:06)
[2022-04-07] MEDS ORDERED: Propofol 500 MG/50 ML VIAL ONE (11:28)
[2022-04-07] MEDS ORDERED: Phenylephrine 10 MG/ML VIAL ONE (11:28)
[2022-04-07] MEDS ORDERED: Metoclopramide HCl 10 MG/2 ML VIAL ONE (11:42)
[2022-04-07] MEDS ORDERED: Ondansetron PF 4 MG/2 ML Vial ONE (11:42)
[2022-04-07] MEDS ORDERED: Rocuronium Bromide 10 MG/ML (10ML VIAL) ONE (11:42)
[2022-04-07] MEDS ORDERED: PROPOFOL 200 MG/20 ML VIAL ONE (11:42)
[2022-04-07] MEDS ORDERED: Succinylcholine 200 MG/10 ml SYRINGE FS ONE (11:42)
[2022-04-07] MEDS ORDERED: Lidocaine 1% (PF) 30 ML VIAL ONE (12:00)
[2022-04-07] MEDS ORDERED: Isoproterenol 0.2 MG/1 ML AMP ONE (12:27)
[2022-04-07] MEDS ORDERED: Protamine Sulfate 50 MG/5 ML VIAL ONE (13:20)
[2022-04-07] MEDS ORDERED: Ondansetron HCl/PF 4 MG/2 ML Vial IVP PRN (13:58)
[2022-04-07] MEDS: Venlafaxine HCl XR 75 MG CAP PO SCH (17:56)
[2022-04-07] MEDS: traMADol HCl 50 MG TAB PO PRN (17:57)
[2022-04-07] MEDS: Atorvastatin Calcium 20 MG TAB PO SCH (19:51)
[2022-04-08 05:18] LABS: #Eosinphils 0.1 thou/uL (0.0-0.7); #Lymphocytes 0.5 thou/uL (1.20-3.40); #Monocytes 0.9 thou/uL (0.11-0.59); #Neutrophils 6.9 thou/uL (1.40-6.50); %Basophils 0.1 % (0.0-1.0); %Eosinophils 1.6 % (0.0-10.0); %Lymphocytes 6.4 % (21.0-51.0); %Monocytes 10.3 % (0.0-10.0); %Neutrophils 81.6 % (42.0-75.0); Hemoglobin 13.9 g/dL (14.0-18.0); Mean Corpuscular Hemoglobin 31.4 pg (27.0-31.0); Mean Corpuscular Volume 98.3 fl (78.0-98.0); Mean Platelet Volume 8.1 fL (7.4-10.4); Platelet Count 261 thou/uL (130-400); RBC Distribution Width 12.6 % (11.5-14.5); Red Blood Cell (RBC) Count 4.43 mill/uL (4.70-6.10); White Blood Cell (WBC) Count 8.4 thou/uL (4.8-10.8)
[2022-04-08 05:57] LABS: Anion Gap 9 mmol/L (10-20); BUN (Urea Nitrogen) 9 mg/dL (8.4-25.7); Calc. Creatinine Clearance 172 mL/min (70-130); Calcium 8.4 mg/dL (7.8-10.44); Carbon Dioxide 31 mmol/L (23-31); Chloride 103 mmol/L (98-107); Estimated GFR 106; Glucose 139 mg/dL (80-115); Potassium 4.1 mmol/L (3.5-5.1); Sodium 139 mmol/L (136-145)
[2022-04-08] MEDS ORDERED: Furosemide 40 MG/4 ML VIAL SLOW IVP SCH (07:30)
[2022-04-08] MEDS: traMADol HCl 50 MG TAB PO PRN ×2 (08:05→20:02)
[2022-04-08] MEDS: Venlafaxine HCl XR 75 MG CAP PO SCH (08:06)
[2022-04-08] MEDS: Apixaban 5 MG TAB PO SCH ×2 (08:06→20:00)
[2022-04-08] MEDS: Carvedilol 6.25 MG TAB PO SCH ×2 (08:06→16:56)
[2022-04-08] MEDS ORDERED: Amiodarone 200 MG TAB PO SCH (09:00)
[2022-04-08] MEDS ORDERED: Empagliflozin 10 MG TAB PO SCH (11:00)
[2022-04-08] MEDS: HumaLOG 300 UNITS/3 ML VIAL SC PRN (11:34)
[2022-04-08] MEDS: Atorvastatin Calcium 20 MG TAB PO SCH (20:00)
[2022-04-08] MEDS: Amiodarone 200 MG TAB PO SCH (20:00)
[2022-04-09 05:27] LABS: #Eosinphils 0.2 thou/uL (0.0-0.7); #Lymphocytes 0.5 thou/uL (1.20-3.40); #Monocytes 0.9 thou/uL (0.11-0.59); #Neutrophils 6.4 thou/uL (1.40-6.50); %Basophils 0.1 % (0.0-1.0); %Eosinophils 2.6 % (0.0-10.0); %Lymphocytes 6.1 % (21.0-51.0); %Monocytes 11.4 % (0.0-10.0); %Neutrophils 79.8 % (42.0-75.0); Hemoglobin 13.6 g/dL (14.0-18.0); Mean Corpuscular HGB CONC 30.6 g/dL (32.0-36.0); Mean Corpuscular Hemoglobin 30.4 pg (27.0-31.0); Mean Corpuscular Volume 99.2 fl (78.0-98.0); Platelet Count 261 thou/uL (130-400); RBC Distribution Width 12.6 % (11.5-14.5); Red Blood Cell (RBC) Count 4.47 mill/uL (4.70-6.10)
[2022-04-09 05:43] LABS: Anion Gap 9 mmol/L (10-20); BUN (Urea Nitrogen) 11 mg/dL (8.4-25.7); Calc. Creatinine Clearance 149 mL/min (70-130); Calcium 8.2 mg/dL (7.8-10.44); Carbon Dioxide 33 mmol/L (23-31); Chloride 100 mmol/L (98-107); Estimated GFR 101; Glucose 143 mg/dL (80-115); Potassium 4.1 mmol/L (3.5-5.1); Sodium 138 mmol/L (136-145)
[2022-04-09 07:43] VITALS: BP 148/80; TEMP 98.5
[2022-04-09] MEDS: Venlafaxine HCl XR 75 MG CAP PO SCH (08:07)
[2022-04-09] MEDS: Amiodarone 200 MG TAB PO SCH (08:08)
[2022-04-09] MEDS: Carvedilol 6.25 MG TAB PO SCH (08:08)
[2022-04-09] MEDS: Apixaban 5 MG TAB PO SCH (08:08)
[2022-04-09] MEDS ORDERED: Furosemide 40 MG/4 ML VIAL SLOW IVP SCH (09:00)
== END 2022-04-09 12:30 | disposition home or self-care (01) | DRG 273 ==
LOC: ERS 12:24 → 2SW 15:27 → OBSVTOIN 04-05 10:27
PROVIDERS: ADMIT Internal Medicine; ATTEND Family Medicine
PROC: 02583ZZ Destruction of Conduction Mechanism, Percutaneous Approach (ICD-10-PCS; principal; 2022-04-07)
PROC: 02K83ZZ Map Conduction Mechanism, Percutaneous Approach (ICD-10-PCS; 2022-04-07)
DX: I47.1 Supraventricular tachycardia (principal); I50.43 Acute on chronic combined systolic (congestive) and diastolic (congestive) heart failure; J95.821 Acute postprocedural respiratory failure; I35.0 Nonrheumatic aortic (valve) stenosis; E11.40 Type 2 diabetes mellitus with diabetic neuropathy, unspecified; I48.0 Paroxysmal atrial fibrillation; E78.5 Hyperlipidemia, unspecified; I44.30 Unspecified atrioventricular block; I11.0 Hypertensive heart disease with heart failure; I87.8 Other specified disorders of veins; Z20.822 Contact with and (suspected) exposure to COVID-19; Z79.4 Long term (current) use of insulin; Z79.84 Long term (current) use of oral hypoglycemic drugs; Z79.2 Long term (current) use of antibiotics; Z79.899 Other long term (current) drug therapy; Z79.01 Long term (current) use of anticoagulants; Z87.891 Personal history of nicotine dependence
CPT/HCPCS: 36415; 36416; 71045; 80048; 80053; 83690; 83735; 83880; 84443; 84484; 85025; 85347; 90471; 90662; 93005; 93312; 93623; 93653; 93662; 94760; 96374; 96376; C1731; C1732; C1759; C1760; C1769; C1894; C2630; G0008; G0378; J1644; J1815; J1940; J2001; J2370; J2405; J2704; J2720; J2765; J3490; S0028; U0003; U0005

== ENCOUNTER 2022-07-10 12:10 | Outpatient (CLI) | payer OTHER | END 2022-07-10 12:11 | disposition home or self-care (01) | LOC: ULT 12:10 | PROVIDERS: ATTEND Internal Medicine Cardiovascular Disease | DX: I35.0 Nonrheumatic aortic (valve) stenosis (principal) | CPT/HCPCS: 93880 ==

== ENCOUNTER 2023-01-30 12:42 | Outpatient (CLI) | payer OTHER, MEDICAID | END 2023-01-30 12:43 | disposition home or self-care (01) | LOC: LABBT 12:42 | PROVIDERS: ATTEND Thoracic Surgery (Cardiothoracic Vascular Surgery) | DX: Z01.818 Encounter for other preprocedural examination (principal); I35.0 Nonrheumatic aortic (valve) stenosis | CPT/HCPCS: 71046; 93005; 93010 ==

== ENCOUNTER 2023-01-30 13:00 | Inpatient (IN) | payer OTHER, MEDICAID ==
[2023-01-30 15:29] LABS: Hematocrit 46.5 % (38.8-50.0); Hemoglobin 15.2 g/dL (13.5-17.5); Mean Corpuscular Hemoglobin 30.3 pg (27.0-33.0); Mean Corpuscular Volume 92.6 fl (81.2-95.1); Mean Platelet Volume 10.3 fl (7.4-10.4); Platelet Count 336 10x3/uL (130-400); RBC Distribution Width 13.5 % (11.5-14.5); Red Blood Cell (RBC) Count 5.02 10x6/uL (4.32-5.72); White Blood Cell (WBC) Count 8.3 10x3/uL (3.5-10.5)
[2023-01-30 17:32] LABS: Anion Gap 13 mmol/L (10-20); BUN (Urea Nitrogen) 12 mg/dL (8.4-25.7); Calc. Creatinine Clearance 0 mL/min (70-130); Calcium 7.9 mg/dL (7.8-10.44); Carbon Dioxide 28 mmol/L (23-31); Chloride 103 mmol/L (98-107); Estimated GFR 101; Glucose 65 mg/dL (80-115); Potassium 4.8 mmol/L (3.5-5.1); Sodium 139 mmol/L (136-145)
[2023-01-31] MEDS ORDERED: Albumin 5% 500 ML ONE (06:22)
[2023-01-31] MEDS ORDERED: Heparin 10,000 UNITS/1 ML VIAL 30,000 UNITS in Sodium Chloride 0.9% 1,000 ML FS SCH (06:30)
[2023-01-31] MEDS ORDERED: Fentanyl 250 MCG/5 ML VIAL ONE (06:43)
[2023-01-31] MEDS ORDERED: Midazolam HCl 2 mg/2 ml Vial ONE (06:43)
[2023-01-31] MEDS ORDERED: Dexmedetomidine 200 MCG/2 ML VIAL ONE (06:43)
[2023-01-31] MEDS ORDERED: Sodium Chloride 0.9% 100 ML ONE (07:23)
[2023-01-31] MEDS ORDERED: CEFAZOLIN 2 GM VIAL ONE (07:23)
[2023-01-31] MEDS ORDERED: Vancomycin 1 GM/200 ML (FROZEN) BAG ONE (07:28)
[2023-01-31] MEDS ORDERED: Lidocaine 2% PF 100 mg/5 ml Syringe ONE (08:02)
[2023-01-31] MEDS ORDERED: Heparin 30,000 units/30 ml VIAL ONE (08:02)
[2023-01-31] MEDS ORDERED: Vecuronium 10 MG VIAL ONE (08:02)
[2023-01-31] MEDS ORDERED: Lidocaine 1% PF 5 ML VIAL ONE (08:02)
[2023-01-31] MEDS ORDERED: Calcium Chloride 1 GM/10 ML Abboject SYRINGE ONE (08:02)
[2023-01-31] MEDS ORDERED: Protamine Sulfate 250 MG/25 ML VIAL ONE (08:02)
[2023-01-31] MEDS ORDERED: Potassium Chloride 60 MEQ/30 ML VIAL ONE (08:02)
[2023-01-31] MEDS ORDERED: Succinylcholine 200 MG/10 ml SYRINGE FS ONE (08:02)
[2023-01-31] MEDS ORDERED: Mannitol 12.5 GM/50 ML ONE (08:02)
[2023-01-31] MEDS ORDERED: Cardioplegic Soln 1,000 ML BAG ONE (08:02)
[2023-01-31] MEDS ORDERED: Papaverine 60 MG/2 ML VIAL ONE (08:02)
[2023-01-31] MEDS ORDERED: PROPOFOL 200 MG/20 ML VIAL ONE (08:02)
[2023-01-31] MEDS ORDERED: Heparin 5,000 UNITS/ML VIAL ONE (08:02)
[2023-01-31] MEDS ORDERED: Norepinephrine 4 MG/4 ML VIAL ONE (08:02)
[2023-01-31] MEDS ORDERED: Magnesium 5 GM/10 ML VIAL ONE (08:02)
[2023-01-31] MEDS ORDERED: Sodium Bicarb 50 MEQ/50 ML VIAL ONE ×2 (08:02→20:58)
[2023-01-31] MEDS ORDERED: Aminocaproic Acid 5 GM/20 ML VIAL ONE (08:02)
[2023-01-31] MEDS ORDERED: Vancomycin 1 GM VIAL ONE (08:02)
[2023-01-31] MEDS ORDERED: Thrombin 5000 UNITS/5 ML VIAL ONE (08:02)
[2023-01-31] MEDS ORDERED: PHENYLEPHRINE-NS 100 MCG/ML 10 ML SYRINGE ONE (08:21)
[2023-01-31] MEDS ORDERED: Milrinone 10 MG/10 ML VIAL ONE (08:21)
[2023-01-31] MEDS ORDERED: Isoflurane INH ANEST 100 ML BOTTLE ONE (08:21)
[2023-01-31] MEDS ORDERED: Mag-Al 1200 mg/1200 mg/30 ML UDCUP PO PRN (12:41)
[2023-01-31] MEDS ORDERED: Hetastarch 6% 500 ML 500 ML IVPB PRN (12:41)
[2023-01-31] MEDS ORDERED: DOPamine 400 MG/D5W 250 ML 250 ML IVPB PRN (12:41)
[2023-01-31] MEDS ORDERED: hydrALAZINE 20 MG/ML VIAL SLOW IVP PRN (12:41)
[2023-01-31] MEDS ORDERED: Potassium Chloride 20 MEQ/100 ML PREMIX BAG IVPB PRN (12:41)
[2023-01-31] MEDS ORDERED: NOREPINEPHRINE 8 MG/250 ML-D5W 250 ML IVPB PRN (12:41)
[2023-01-31] MEDS ORDERED: Ipratropium/Albuterol 3 ML NEB NEB PRN (12:41)
[2023-01-31] MEDS ORDERED: Nitroglycerin 50 MG/250 ML BOT 250 ML IVPB PRN (12:41)
[2023-01-31] MEDS ORDERED: Ondansetron PF 4 MG/2 ML Vial IVP PRN (12:41)
[2023-01-31] MEDS ORDERED: Post-Op Insulin Drip Protocol IVPB ONE (12:41)
[2023-01-31] MEDS ORDERED: niCARdipine 25 MG in Sodium Chloride 0.9% 250 ML 250 ML IVPB PRN (12:41)
[2023-01-31] MEDS ORDERED: fentaNYL 50 mcg/mL 1 mL Vial SLOW IVP PRN ×2 (12:41)
[2023-01-31] MEDS ORDERED: Bisacodyl 10 MG SUPP PR PRN (12:41)
[2023-01-31] MEDS ORDERED: NOREPINEPHRINE 8 MG/250 ML-D5W 250 ML ONE (12:46)
[2023-01-31 12:50] LABS: Base Excess (BEa) -4.8 mEq/L (-2.0 to +3.0); CO2 Tension 41.3 mmHg (35.0-45.0); Calcium, Ionized (arterial) 1.09 mmol/L (1.12-1.30); Carboxyhemoglobin (COHb) 0.6 gm% (0.0-3.0); Hematocrit-ABG 41 % (42.0-52.0); Hemoglobin (Hb) 13.8 g/dL (14.0-18.0); O2 Tension (PaO2), arterial 98.3 mmHg (> 80.0); Potassium - ABG Lab 4.16 mmol/L (3.70-5.30); pH, Arterial 7.324 (7.35-7.45)
[2023-01-31 12:51] LABS: ALV-art Gradient 277.875 mmHg (0-20); Puncture Site Arterial Line
[2023-01-31] MEDS ORDERED: Dextrose 5% in Water 1,000 ML IV PRN (13:00)
[2023-01-31] MEDS ORDERED: Glucagon 1 MG/ML KIT SC PRN (13:00)
[2023-01-31] MEDS ORDERED: HUMULIN R 100 UNITS in Sodium Chloride 0.9% 100 ML IVPB SCH (13:00)
[2023-01-31] MEDS ORDERED: Dextrose 50% Abboject 50 ML SYRINGE SLOW IVP PRN (13:00)
[2023-01-31] MEDS ORDERED: Insulin Regular 300 UNITS/3 ML VIAL ONE (13:02)
[2023-01-31] MEDS: Lactated Ringer's 1,000 ML IV SCH (13:04)
[2023-01-31] MEDS: Insulin Regular 300 UNITS/3 ML VIAL SC PRN ×2 (13:05→18:15)
[2023-01-31 13:23] LABS: Hematocrit 38.8 % (42.0-52.0); Hemoglobin 12.8 g/dL (14.0-18.0); Mean Corpuscular Hemoglobin 30.9 pg (27.0-31.0); Mean Corpuscular Volume 93.7 fl (78.0-98.0); Mean Platelet Volume 10.5 fL (7.4-10.4); Platelet Count 245 10x3/uL (130-400); RBC Distribution Width 13.4 % (11.5-14.5); Red Blood Cell (RBC) Count 4.14 mill/uL (4.70-6.10); White Blood Cell (WBC) Count 26.5 10x3/uL (4.8-10.8)
[2023-01-31 13:34] LABS: Delete Auto Diff?? YES; Manual Diff?? YES
[2023-01-31 13:44] LABS: Anion Gap 11 mmol/L (10-20); BUN (Urea Nitrogen) 14 mg/dL (8.4-25.7); Calc. Creatinine Clearance 148 mL/min (70-130); Calcium 7.4 mg/dL (7.8-10.44); Carbon Dioxide 20 mmol/L (23-31); Chloride 108 mmol/L (98-107); Estimated GFR 101; Glucose 142 mg/dL (80-115); Potassium 4.4 mmol/L (3.5-5.1); Sodium 135 mmol/L (136-145)
[2023-01-31 13:52] LABS: Band 20 % (5-11); Burr Cells SLIGHT = 2-5 cells HPF (0-1); CellaVision Operator ID LAB.KB; Lymphocytes 2 % (21-51); Monocytes 1 % (0-10); Neutrophil 77 % (42-75); Platelet Adequacy Comment Platelets Normal; Polychromasia SLIGHT = 2-3 cells HPF (0-2); Smudge Cells 11.7 %; Total Cell Count 103
[2023-01-31 13:55] LABS: INR-International Normal Ratio 1.3; Prothrombin Time 16.2 sec (12.0-14.7)
[2023-01-31 13:56] LABS: PTT 41.7 sec (22.9-36.1)
[2023-01-31] MEDS: Morphine 2 MG/ML VIAL SLOW IVP PRN ×2 (14:09→16:37)
[2023-01-31] MEDS: CEFAZOLIN 2 GM in Sodium Chloride 0.9% 100 ML IVPB SCH ×2 (15:10→23:11)
[2023-01-31 15:27] VITALS: BMI 36.1
[2023-01-31 16:27] LABS: Actual Bicarbonate (HCO3a) 20.5 mEq/L (22-28); Base Excess (BEa) -4.6 mEq/L (-2.0 to +3.0); CO2 Tension 38.1 mmHg (35.0-45.0); Calcium, Ionized (arterial) 1.11 mmol/L (1.12-1.30); Carboxyhemoglobin (COHb) 0.7 gm% (0.0-3.0); Hematocrit-ABG 42 % (42.0-52.0); Hemoglobin (Hb) 14.3 g/dL (14.0-18.0); Potassium - ABG Lab 4.31 mmol/L (3.70-5.30); pH, Arterial 7.348 (7.35-7.45)
[2023-01-31 16:31] LABS: Puncture Site Arterial Line
[2023-01-31 16:32] LABS: ALV-art Gradient 133.575 mmHg (0-20)
[2023-01-31] MEDS: Ketorolac Tromethamine 30 MG/ML VIAL IVP SCH ×2 (18:14→23:12)
[2023-01-31 18:46] LABS: Hematocrit 41.5 % (42.0-52.0); Hemoglobin 13.9 g/dL (14.0-18.0)
[2023-01-31] MEDS: Famotidine/PF 20 mg/2ml Vial SLOW IVP SCH (19:36)
[2023-01-31 19:46] LABS: Potassium 4.4 mmol/L (3.5-5.1)
[2023-01-31 20:50] LABS: Actual Bicarbonate (HCO3a) 18.8 mEq/L (22-28); Base Excess (BEa) -6.9 mEq/L (-2.0 to +3.0); CO2 Tension 38.4 mmHg (35.0-45.0); Calcium, Ionized (arterial) 1.13 mmol/L (1.12-1.30); Carboxyhemoglobin (COHb) 0.9 gm% (0.0-3.0); Hematocrit-ABG 41 % (42.0-52.0); Hemoglobin (Hb) 13.8 g/dL (14.0-18.0); O2 Tension (PaO2), arterial 97.5 mmHg (> 80.0); Potassium - ABG Lab 4.13 mmol/L (3.70-5.30); pH, Arterial 7.308 (7.35-7.45)
[2023-01-31 21:11] LABS: Puncture Site ALINE
[2023-01-31] MEDS: Atorvastatin Calcium 20 MG TAB PO SCH (21:21)
[2023-01-31] MEDS: HYDROcodone/Acetaminophen 5/325 mg Tablet PO PRN (23:20)
[2023-02-01] MEDS: Lactated Ringer's 1,000 ML IV SCH (01:27)
[2023-02-01 04:37] LABS: #Eosinphils 0.1 thou/uL (0.0-0.7); #Monocytes 2.1 thou/uL (0.11-0.59); #Neutrophils 14.9 thou/uL (1.40-6.50); %Basophils 0.2 % (0.0-1.0); %Eosinophils 0.3 % (0.0-10.0); %Lymphocytes 3.1 % (21.0-51.0); %Neutrophils 83.9 % (42.0-75.0); Hematocrit 33.5 % (42.0-52.0); Hemoglobin 11.2 g/dL (14.0-18.0); Mean Corpuscular HGB CONC 33.4 g/dL (32.0-36.0); Mean Corpuscular Hemoglobin 30.9 pg (27.0-31.0); Mean Corpuscular Volume 92.5 fl (78.0-98.0); Platelet Count 197 10x3/uL (130-400); RBC Distribution Width 13.5 % (11.5-14.5); Red Blood Cell (RBC) Count 3.62 mill/uL (4.70-6.10); White Blood Cell (WBC) Count 17.8 10x3/uL (4.8-10.8)
[2023-02-01] MEDS: HYDROcodone/Acetaminophen 5/325 mg Tablet PO PRN ×3 (04:54→22:08)
[2023-02-01 04:58] LABS: Anion Gap 10 mmol/L (10-20); BUN (Urea Nitrogen) 19 mg/dL (8.4-25.7); Calc. Creatinine Clearance 128 mL/min (70-130); Calcium 7.9 mg/dL (7.8-10.44); Carbon Dioxide 24 mmol/L (23-31); Chloride 108 mmol/L (98-107); Estimated GFR 96; Glucose 117 mg/dL (80-115); Sodium 138 mmol/L (136-145)
[2023-02-01] MEDS: Ketorolac Tromethamine 30 MG/ML VIAL IVP SCH ×3 (05:53→17:43)
[2023-02-01] MEDS: Polyethylene Glycol 3350 17 GM Packet PO SCH (08:56)
[2023-02-01] MEDS: Aspirin 325 MG TAB PO SCH (08:56)
[2023-02-01] MEDS: Magnesium 2 GM/50 ML(in water) 2 GM in Premix Bag 1 BAG IVPB SCH (08:57)
[2023-02-01] MEDS: Famotidine/PF 20 mg/2ml Vial SLOW IVP SCH ×2 (08:58→21:55)
[2023-02-01] MEDS: CEFAZOLIN 2 GM in Sodium Chloride 0.9% 100 ML IVPB SCH (08:58)
[2023-02-01] MEDS ORDERED: Spironolactone 25 MG TAB PO SCH (10:15)
[2023-02-01] MEDS ORDERED: Furosemide 20 MG/2 ML VIAL SLOW IVP SCH (12:00)
[2023-02-01] MEDS ORDERED: Insulin Glargine 30 UNITS/0.3 ML VIAL SC PRN (12:48)
[2023-02-01] MEDS: Atorvastatin Calcium 20 MG TAB PO SCH (21:55)
[2023-02-02] MEDS: Ketorolac Tromethamine 30 MG/ML VIAL IVP SCH ×2 (00:09→05:37)
[2023-02-02] MEDS: HYDROcodone/Acetaminophen 5/325 mg Tablet PO PRN ×2 (04:00→23:51)
[2023-02-02 04:54] LABS: #Monocytes 1.4 thou/uL (0.11-0.59); #Neutrophils 14.1 thou/uL (1.40-6.50); %Basophils 0.2 % (0.0-1.0); %Eosinophils 0.1 % (0.0-10.0); %Lymphocytes 5.5 % (21.0-51.0); %Monocytes 8.5 % (0.0-10.0); %Neutrophils 85.2 % (42.0-75.0); Hematocrit 30.6 % (42.0-52.0); Hemoglobin 9.8 g/dL (14.0-18.0); Mean Platelet Volume 10.6 fL (7.4-10.4); Platelet Count 175 10x3/uL (130-400); RBC Distribution Width 14.2 % (11.5-14.5); Red Blood Cell (RBC) Count 3.16 mill/uL (4.70-6.10); White Blood Cell (WBC) Count 16.5 10x3/uL (4.8-10.8)
[2023-02-02 05:01] LABS: Mean Corpuscular Volume 96.8 fl (78.0-98.0)
[2023-02-02 05:15] LABS: Anion Gap 8 mmol/L (10-20); BUN (Urea Nitrogen) 31 mg/dL (8.4-25.7); Calc. Creatinine Clearance 106 mL/min (70-130); Carbon Dioxide 28 mmol/L (23-31); Chloride 105 mmol/L (98-107); Estimated GFR 83; Glucose 119 mg/dL (80-115); Potassium 4.5 mmol/L (3.5-5.1); Sodium 136 mmol/L (136-145)
[2023-02-02] MEDS: Empagliflozin 10 MG TAB PO SCH (09:03)
[2023-02-02] MEDS: Aspirin 325 MG TAB PO SCH (09:03)
[2023-02-02] MEDS: Polyethylene Glycol 3350 17 GM Packet PO SCH (09:04)
[2023-02-02] MEDS: Magnesium 2 GM/50 ML(in water) 2 GM in Premix Bag 1 BAG IVPB SCH (09:04)
[2023-02-02] MEDS: Famotidine/PF 20 mg/2ml Vial SLOW IVP SCH (09:04)
[2023-02-02] MEDS: Spironolactone 25 MG TAB PO SCH (09:04)
[2023-02-02] MEDS: DOBUTamine 500 mg/250 ml 250 ML IVPB SCH (09:22)
[2023-02-02] MEDS ORDERED: Ketorolac Tromethamine 30 MG/ML VIAL IVP SCH (09:30)
[2023-02-02] MEDS: Famotidine 20 MG TAB PO SCH (19:56)
[2023-02-02] MEDS: Atorvastatin Calcium 20 MG TAB PO SCH (19:56)
[2023-02-03] MEDS: DOBUTamine 500 mg/250 ml 250 ML IVPB SCH ×2 (04:09→22:00)
[2023-02-03] MEDS ORDERED: Amiodarone 150 MG, Admixture Fee 1 EACH in Dextrose 5% in Water 100 ML IVPB SCH (04:15)
[2023-02-03] MEDS ORDERED: Amiodarone 450 MG, Admixture Fee 1 EACH in Dextrose 5% in Water 250 ML IVPB SCH (04:15)
[2023-02-03] MEDS: HYDROcodone/Acetaminophen 5/325 mg Tablet PO PRN ×2 (04:36→19:38)
[2023-02-03 04:50] LABS: #Eosinphils 0.1 thou/uL (0.0-0.7); #Monocytes 1.1 thou/uL (0.11-0.59); #Neutrophils 10.3 thou/uL (1.40-6.50); %Basophils 0.2 % (0.0-1.0); %Eosinophils 0.6 % (0.0-10.0); %Lymphocytes 3.2 % (21.0-51.0); %Monocytes 9.5 % (0.0-10.0); %Neutrophils 85.7 % (42.0-75.0); Hematocrit 29.3 % (42.0-52.0); Hemoglobin 9.3 g/dL (14.0-18.0); Mean Corpuscular HGB CONC 31.7 g/dL (32.0-36.0); Mean Corpuscular Hemoglobin 30.9 pg (27.0-31.0); Mean Corpuscular Volume 97.3 fl (78.0-98.0); Mean Platelet Volume 10.7 fL (7.4-10.4); Platelet Count 179 10x3/uL (130-400); RBC Distribution Width 14.3 % (11.5-14.5); Red Blood Cell (RBC) Count 3.01 mill/uL (4.70-6.10)
[2023-02-03 05:14] LABS: Anion Gap 11 mmol/L (10-20); BUN (Urea Nitrogen) 36 mg/dL (8.4-25.7); Calc. Creatinine Clearance 117 mL/min (70-130); Carbon Dioxide 27 mmol/L (23-31); Chloride 104 mmol/L (98-107); Estimated GFR 93; Glucose 109 mg/dL (80-115); Potassium 4.3 mmol/L (3.5-5.1); Sodium 138 mmol/L (136-145)
[2023-02-03] MEDS ORDERED: Digoxin 0.5 MG/2 ML AMP SLOW IVP SCH ×2 (07:15→11:00)
[2023-02-03] MEDS ORDERED: Furosemide 100 MG/10 ML VIAL SLOW IVP SCH (07:15)
[2023-02-03] MEDS: Aspirin 325 MG TAB PO SCH (07:22)
[2023-02-03] MEDS ORDERED: Carvedilol 3.125 MG TAB PO SCH (08:00)
[2023-02-03] MEDS: Famotidine 20 MG TAB PO SCH ×2 (08:55→21:01)
[2023-02-03] MEDS: Empagliflozin 10 MG TAB PO SCH (08:55)
[2023-02-03] MEDS: Polyethylene Glycol 3350 17 GM Packet PO SCH (08:56)
[2023-02-03] MEDS: Spironolactone 25 MG TAB PO SCH (08:56)
[2023-02-03] MEDS ORDERED: Amiodarone 200 MG TAB PO SCH (09:30)
[2023-02-03] MEDS: Amiodarone 200 MG TAB PO SCH (21:01)
[2023-02-03] MEDS: Atorvastatin Calcium 20 MG TAB PO SCH (21:01)
[2023-02-04] MEDS: HYDROcodone/Acetaminophen 5/325 mg Tablet PO PRN ×4 (02:23→23:06)
[2023-02-04 04:44] LABS: #Eosinphils 0.1 thou/uL (0.0-0.7); #Monocytes 1.4 thou/uL (0.11-0.59); #Neutrophils 10.1 thou/uL (1.40-6.50); %Basophils 0.2 % (0.0-1.0); %Eosinophils 0.8 % (0.0-10.0); %Lymphocytes 2.7 % (21.0-51.0); %Monocytes 11.3 % (0.0-10.0); %Neutrophils 84.3 % (42.0-75.0); Hematocrit 30.7 % (42.0-52.0); Hemoglobin 9.8 g/dL (14.0-18.0); Mean Corpuscular HGB CONC 31.9 g/dL (32.0-36.0); Mean Corpuscular Hemoglobin 30.8 pg (27.0-31.0); Mean Corpuscular Volume 96.5 fl (78.0-98.0); Mean Platelet Volume 10.1 fL (7.4-10.4); Platelet Count 231 10x3/uL (130-400); RBC Distribution Width 14.1 % (11.5-14.5); Red Blood Cell (RBC) Count 3.18 mill/uL (4.70-6.10); White Blood Cell (WBC) Count 11.9 10x3/uL (4.8-10.8)
[2023-02-04 05:03] LABS: Anion Gap 8 mmol/L (10-20); BUN (Urea Nitrogen) 38 mg/dL (8.4-25.7); Calc. Creatinine Clearance 117 mL/min (70-130); Carbon Dioxide 30 mmol/L (23-31); Chloride 102 mmol/L (98-107); Estimated GFR 93; Glucose 129 mg/dL (80-115); Potassium 4.4 mmol/L (3.5-5.1); Sodium 136 mmol/L (136-145)
[2023-02-04] MEDS: Furosemide 40 MG/4 ML VIAL SLOW IVP SCH (06:48)
[2023-02-04] MEDS: Polyethylene Glycol 3350 17 GM Packet PO SCH (09:11)
[2023-02-04] MEDS: Aspirin 325 MG TAB PO SCH (09:11)
[2023-02-04] MEDS: Amiodarone 200 MG TAB PO SCH ×2 (09:14→20:22)
[2023-02-04] MEDS: Bisacodyl 5 MG TAB PO PRN (09:14)
[2023-02-04] MEDS: Famotidine 20 MG TAB PO SCH ×2 (09:14→20:22)
[2023-02-04] MEDS: Spironolactone 25 MG TAB PO SCH (09:15)
[2023-02-04] MEDS: Empagliflozin 10 MG TAB PO SCH (09:25)
[2023-02-04] MEDS ORDERED: Furosemide 40 MG/4 ML VIAL SLOW IVP SCH (19:00)
[2023-02-04] MEDS: Atorvastatin Calcium 20 MG TAB PO SCH (20:22)
[2023-02-04] MEDS: DOBUTamine 500 mg/250 ml 250 ML IVPB SCH (22:21)
[2023-02-04] MEDS: Guaifenesin DM 100-10/5 ML UDCUP PO PRN (23:06)
[2023-02-05 04:53] LABS: #Eosinphils 0.1 thou/uL (0.0-0.7); #Monocytes 1.5 thou/uL (0.11-0.59); #Neutrophils 9.3 thou/uL (1.40-6.50); %Basophils 0.3 % (0.0-1.0); %Lymphocytes 2.9 % (21.0-51.0); %Monocytes 13.1 % (0.0-10.0); Hematocrit 31.7 % (42.0-52.0); Hemoglobin 10.1 g/dL (14.0-18.0); Mean Corpuscular HGB CONC 31.9 g/dL (32.0-36.0); Mean Corpuscular Hemoglobin 30.9 pg (27.0-31.0); Mean Corpuscular Volume 96.9 fl (78.0-98.0); Mean Platelet Volume 10.2 fL (7.4-10.4); Platelet Count 283 10x3/uL (130-400); Red Blood Cell (RBC) Count 3.27 mill/uL (4.70-6.10); White Blood Cell (WBC) Count 11.4 10x3/uL (4.8-10.8)
[2023-02-05 05:28] LABS: Anion Gap 13 mmol/L (10-20); BUN (Urea Nitrogen) 42 mg/dL (8.4-25.7); Calc. Creatinine Clearance 110 mL/min (70-130); Carbon Dioxide 30 mmol/L (23-31); Chloride 98 mmol/L (98-107); Estimated GFR 87; Glucose 141 mg/dL (80-115); Potassium 4.3 mmol/L (3.5-5.1); Sodium 137 mmol/L (136-145)
[2023-02-05] MEDS: Furosemide 40 MG/4 ML VIAL SLOW IVP SCH (06:39)
[2023-02-05] MEDS: Aspirin 325 MG TAB PO SCH (08:40)
[2023-02-05] MEDS: Spironolactone 25 MG TAB PO SCH (08:40)
[2023-02-05] MEDS: Amiodarone 200 MG TAB PO SCH ×2 (08:40→20:26)
[2023-02-05] MEDS: Empagliflozin 10 MG TAB PO SCH (08:41)
[2023-02-05] MEDS: Polyethylene Glycol 3350 17 GM Packet PO SCH (08:41)
[2023-02-05] MEDS: Famotidine 20 MG TAB PO SCH ×2 (08:41→20:26)
[2023-02-05] MEDS ORDERED: Nitroglycerin 0.4 MG TAB (25 Tab Bottle) SL PRN (09:14)
[2023-02-05] MEDS ORDERED: Artificial Tear Sol 15 ML BOT EA EYE PRN (09:14)
[2023-02-05] MEDS ORDERED: DOBUTamine 500 mg/250 ml 250 ML IVPB SCH (09:15)
[2023-02-05] MEDS: HYDROcodone/Acetaminophen 5/325 mg Tablet PO PRN ×2 (17:18→23:43)
[2023-02-05] MEDS: Atorvastatin Calcium 20 MG TAB PO SCH (20:26)
[2023-02-06 04:29] LABS: Anion Gap 10 mmol/L (10-20); BUN (Urea Nitrogen) 50 mg/dL (8.4-25.7); Calc. Creatinine Clearance 108 mL/min (70-130); Carbon Dioxide 30 mmol/L (23-31); Chloride 100 mmol/L (98-107); Estimated GFR 85; Glucose 152 mg/dL (80-115); Potassium 4.3 mmol/L (3.5-5.1); Sodium 136 mmol/L (136-145)
[2023-02-06] MEDS: Polyethylene Glycol 3350 17 GM Packet PO SCH ×2 (08:44→09:21)
[2023-02-06] MEDS: Spironolactone 25 MG TAB PO SCH (08:44)
[2023-02-06] MEDS: Furosemide 40 MG/4 ML VIAL SLOW IVP SCH (08:44)
[2023-02-06] MEDS: Famotidine 20 MG TAB PO SCH ×2 (08:44→20:34)
[2023-02-06] MEDS: Amiodarone 200 MG TAB PO SCH ×2 (08:44→20:34)
[2023-02-06] MEDS: Empagliflozin 10 MG TAB PO SCH (08:44)
[2023-02-06] MEDS: Aspirin 325 MG TAB PO SCH (08:44)
[2023-02-06 12:17] LABS: Actual Bicarbonate (HCO3a) 22.4 mEq/L (22-28); Analyzer IN Cardio OR; Base Excess (BEa) -1.4 mEq/L (-2.0 to +3.0); CO2 Tension 34.8 mmHg (35.0-45.0); Calcium, Ionized (arterial) 1.11 mmol/L (1.12-1.30); Carboxyhemoglobin (COHb) 0.9 gm% (0.0-3.0); Hematocrit-ABG 39 % (42.0-52.0); Hemoglobin (Hb) 13.3 g/dL (14.0-18.0); O2 Tension (PaO2), arterial 435.4 mmHg (> 80.0); Potassium - ABG Lab 3.94 mmol/L (3.70-5.30); pH, Arterial 7.426 (7.35-7.45)
[2023-02-06 12:17] LABS: Analyzer IN Cardio OR; Base Excess (BEa) -0.6 mEq/L (-2.0 to +3.0); CO2 Tension 44.9 mmHg (35.0-45.0); Calcium, Ionized (arterial) 1.07 mmol/L (1.12-1.30); Carboxyhemoglobin (COHb) 1.1 gm% (0.0-3.0); Hematocrit-ABG 41 % (42.0-52.0); Hemoglobin (Hb) 14.1 g/dL (14.0-18.0); O2 Tension (PaO2), arterial 389.9 mmHg (> 80.0); Potassium - ABG Lab 4.02 mmol/L (3.70-5.30); pH, Arterial 7.364 (7.35-7.45)
[2023-02-06 12:18] LABS: Analyzer IN Cardio OR; Base Excess 1.7 mEq/L (-2.0 to +3.0); Calcium, Ionized (venous) 1.06 mmol/L (1.16-1.32); Chloride (VBG) 104 mmol/L (98-106); Hematocrit-VBG 31 % (42.0-52.0); Hemoglobin (Hb) 10.7 g/dL (12.6-17.4); Potassium (VBG) 4.07 mmol/L (3.70-5.30); Sodium 132.9 mmol/L (133-146); pH (venous) 7.435 (7.32-7.43)
[2023-02-06 12:18] LABS: Actual Bicarbonate (HCO3a) 24.1 mEq/L (22-28); Analyzer IN Cardio OR; Base Excess (BEa) 1.4 mEq/L (-2.0 to +3.0); CO2 Tension 31.3 mmHg (35.0-45.0); Calcium, Ionized (arterial) 1.03 mmol/L (1.12-1.30); Carboxyhemoglobin (COHb) 0.5 gm% (0.0-3.0); Hematocrit-ABG 30 % (42.0-52.0); Hemoglobin (Hb) 10.3 g/dL (14.0-18.0); O2 Tension (PaO2), arterial 431.5 mmHg (> 80.0); Potassium - ABG Lab 4.21 mmol/L (3.70-5.30); pH, Arterial 7.505 (7.35-7.45)
[2023-02-06 12:19] LABS: Analyzer IN Cardio OR; Base Excess (BEa) 1.2 mEq/L (-2.0 to +3.0); CO2 Tension 36.3 mmHg (35.0-45.0); Calcium, Ionized (arterial) 1.03 mmol/L (1.12-1.30); Carboxyhemoglobin (COHb) 0.3 gm% (0.0-3.0); Hematocrit-ABG 28 % (42.0-52.0); Hemoglobin (Hb) 9.6 g/dL (14.0-18.0); O2 Tension (PaO2), arterial 473.4 mmHg (> 80.0); pH, Arterial 7.456 (7.35-7.45)
[2023-02-06 12:19] LABS: Actual Bicarbonate (HCO3a) 19.6 mEq/L (22-28); Analyzer IN Cardio OR; Base Excess (BEa) -4.3 mEq/L (-2.0 to +3.0); Calcium, Ionized (arterial) 1.04 mmol/L (1.12-1.30); Carboxyhemoglobin (COHb) 0.8 gm% (0.0-3.0); Hematocrit-ABG 36 % (42.0-52.0); Hemoglobin (Hb) 12.1 g/dL (14.0-18.0); O2 Tension (PaO2), arterial 269.8 mmHg (> 80.0); Potassium - ABG Lab 3.82 mmol/L (3.70-5.30); pH, Arterial 7.404 (7.35-7.45)
[2023-02-06] MEDS: HYDROcodone/Acetaminophen 5/325 mg Tablet PO PRN ×3 (13:46→20:50)
[2023-02-06] MEDS: Atorvastatin Calcium 20 MG TAB PO SCH (20:35)
[2023-02-07] MEDS: HYDROcodone/Acetaminophen 5/325 mg Tablet PO PRN ×5 (00:33→19:55)
[2023-02-07] MEDS: Guaifenesin DM 100-10/5 ML UDCUP PO PRN (02:25)
[2023-02-07 04:07] LABS: Anion Gap 11 mmol/L (10-20); BUN (Urea Nitrogen) 56 mg/dL (8.4-25.7); Calc. Creatinine Clearance 105 mL/min (70-130); Calcium 7.9 mg/dL (7.8-10.44); Carbon Dioxide 30 mmol/L (23-31); Chloride 97 mmol/L (98-107); Estimated GFR 83; Glucose 186 mg/dL (80-115); Potassium 3.9 mmol/L (3.5-5.1); Sodium 134 mmol/L (136-145)
[2023-02-07] MEDS: Aspirin 325 MG TAB PO SCH (08:24)
[2023-02-07] MEDS: Spironolactone 25 MG TAB PO SCH (08:24)
[2023-02-07] MEDS: Amiodarone 200 MG TAB PO SCH ×3 (08:24→19:56)
[2023-02-07] MEDS: Empagliflozin 10 MG TAB PO SCH (08:24)
[2023-02-07] MEDS: Famotidine 20 MG TAB PO SCH ×2 (08:25→19:56)
[2023-02-07] MEDS: Bisacodyl 5 MG TAB PO PRN (08:25)
[2023-02-07] MEDS: Benzonatate 100 MG CAP PO SCH ×3 (08:25→19:56)
[2023-02-07] MEDS: Polyethylene Glycol 3350 17 GM Packet PO SCH (16:38)
[2023-02-07] MEDS: Atorvastatin Calcium 20 MG TAB PO SCH (19:56)
[2023-02-08] MEDS: HYDROcodone/Acetaminophen 5/325 mg Tablet PO PRN ×2 (00:07→04:23)
[2023-02-08] MEDS: Guaifenesin DM 100-10/5 ML UDCUP PO PRN (04:23)
[2023-02-08] MEDS: Acetaminophen 325 MG TAB PO PRN (04:24)
[2023-02-08] MEDS: Aspirin 325 MG TAB PO SCH (08:51)
[2023-02-08] MEDS: Spironolactone 25 MG TAB PO SCH (08:52)
[2023-02-08] MEDS: Famotidine 20 MG TAB PO SCH ×2 (08:52→21:35)
[2023-02-08] MEDS: Benzonatate 100 MG CAP PO SCH ×3 (08:52→21:35)
[2023-02-08] MEDS: Empagliflozin 10 MG TAB PO SCH (08:52)
[2023-02-08] MEDS: Amiodarone 200 MG TAB PO SCH ×2 (08:52→21:35)
[2023-02-08] MEDS: Polyethylene Glycol 3350 17 GM Packet PO SCH (08:53)
[2023-02-08] MEDS ORDERED: Furosemide 20 MG/2 ML VIAL SLOW IVP SCH (09:45)
[2023-02-08] MEDS: Atorvastatin Calcium 20 MG TAB PO SCH (21:35)
[2023-02-09] MEDS: Guaifenesin DM 100-10/5 ML UDCUP PO PRN (00:04)
[2023-02-09 04:02] LABS: #Eosinphils 0.1 thou/uL (0.0-0.7); #Monocytes 1.5 thou/uL (0.11-0.59); #Neutrophils 11.2 thou/uL (1.40-6.50); %Basophils 0.2 % (0.0-1.0); %Lymphocytes 2.4 % (21.0-51.0); %Monocytes 11.1 % (0.0-10.0); %Neutrophils 82.5 % (42.0-75.0); Hematocrit 32.1 % (42.0-52.0); Hemoglobin 10.2 g/dL (14.0-18.0); Mean Corpuscular HGB CONC 31.8 g/dL (32.0-36.0); Mean Corpuscular Hemoglobin 30.2 pg (27.0-31.0); Mean Platelet Volume 9.3 fL (7.4-10.4); Platelet Count 506 10x3/uL (130-400); RBC Distribution Width 14.1 % (11.5-14.5); Red Blood Cell (RBC) Count 3.38 mill/uL (4.70-6.10); White Blood Cell (WBC) Count 13.6 10x3/uL (4.8-10.8)
[2023-02-09 04:21] LABS: Anion Gap 12 mmol/L (10-20); BUN (Urea Nitrogen) 46 mg/dL (8.4-25.7); Calc. Creatinine Clearance 118 mL/min (70-130); Calcium 7.8 mg/dL (7.8-10.44); Carbon Dioxide 30 mmol/L (23-31); Chloride 98 mmol/L (98-107); Estimated GFR 95; Glucose 141 mg/dL (80-115); Potassium 3.8 mmol/L (3.5-5.1); Sodium 136 mmol/L (136-145)
[2023-02-09] MEDS ORDERED: Metolazone 5 MG TAB PO SCH (08:30)
[2023-02-09] MEDS ORDERED: Furosemide 20 MG/2 ML VIAL SLOW IVP SCH ×2 (09:00→18:00)
[2023-02-09] MEDS: Benzonatate 100 MG CAP PO SCH ×3 (09:18→21:19)
[2023-02-09] MEDS: Amiodarone 200 MG TAB PO SCH ×2 (09:18→21:20)
[2023-02-09] MEDS: Spironolactone 25 MG TAB PO SCH (09:19)
[2023-02-09] MEDS: Aspirin 325 MG TAB PO SCH (09:19)
[2023-02-09] MEDS: Famotidine 20 MG TAB PO SCH ×2 (09:19→21:19)
[2023-02-09] MEDS: Empagliflozin 10 MG TAB PO SCH (09:19)
[2023-02-09] MEDS: Polyethylene Glycol 3350 17 GM Packet PO SCH (09:22)
[2023-02-09] MEDS ORDERED: Potassium Chloride 20 MEQ TAB PO SCH (12:00)
[2023-02-09] MEDS: HYDROcodone/Acetaminophen 5/325 mg Tablet PO PRN (21:18)
[2023-02-09] MEDS: Atorvastatin Calcium 20 MG TAB PO SCH (21:19)
[2023-02-09] MEDS ORDERED: diphenhydrAMINE 25 MG CAP PO SCH (21:45)
[2023-02-10] MEDS ORDERED: Furosemide 20 MG/2 ML VIAL SLOW IVP SCH ×2 (06:00→08:16)
[2023-02-10] MEDS: HYDROcodone/Acetaminophen 5/325 mg Tablet PO PRN ×4 (06:25→23:59)
[2023-02-10] MEDS: Polyethylene Glycol 3350 17 GM Packet PO SCH (08:25)
[2023-02-10 08:49] LABS: Anion Gap 13 mmol/L (10-20); BUN (Urea Nitrogen) 39 mg/dL (8.4-25.7); Calc. Creatinine Clearance 103 mL/min (70-130); Calcium 7.9 mg/dL (7.8-10.44); Carbon Dioxide 34 mmol/L (23-31); Chloride 95 mmol/L (98-107); Estimated GFR 85; Glucose 162 mg/dL (80-115); Potassium 3.7 mmol/L (3.5-5.1); Sodium 138 mmol/L (136-145)
[2023-02-10] MEDS: Amiodarone 200 MG TAB PO SCH ×2 (10:01→19:54)
[2023-02-10] MEDS: Spironolactone 25 MG TAB PO SCH (10:01)
[2023-02-10] MEDS: Aspirin 325 MG TAB PO SCH (10:01)
[2023-02-10] MEDS: Famotidine 20 MG TAB PO SCH ×2 (10:01→19:54)
[2023-02-10] MEDS: Benzonatate 100 MG CAP PO SCH ×3 (10:02→19:54)
[2023-02-10] MEDS: Empagliflozin 10 MG TAB PO SCH (10:03)
[2023-02-10] MEDS ORDERED: Metolazone 5 MG TAB PO SCH (11:30)
[2023-02-10] MEDS: Furosemide 40 MG/4 ML VIAL SLOW IVP SCH (13:02)
[2023-02-10] MEDS: Atorvastatin Calcium 20 MG TAB PO SCH (19:54)
[2023-02-11] MEDS ORDERED: dilTIAZem 125 MG in Sodium Chloride 0.9% 100 ML IVPB SCH (00:30)
[2023-02-11] MEDS: Furosemide 40 MG/4 ML VIAL SLOW IVP SCH ×2 (06:27→14:44)
[2023-02-11] MEDS ORDERED: Metolazone 5 MG TAB PO SCH (08:30)
[2023-02-11] MEDS: Amiodarone 200 MG TAB PO SCH ×2 (09:27→20:14)
[2023-02-11] MEDS: Aspirin 325 MG TAB PO SCH (09:27)
[2023-02-11] MEDS: Empagliflozin 10 MG TAB PO SCH (09:28)
[2023-02-11] MEDS: Benzonatate 100 MG CAP PO SCH ×3 (09:28→20:14)
[2023-02-11] MEDS: Famotidine 20 MG TAB PO SCH ×2 (09:29→20:14)
[2023-02-11] MEDS: Spironolactone 25 MG TAB PO SCH (09:31)
[2023-02-11] MEDS: Polyethylene Glycol 3350 17 GM Packet PO SCH (09:32)
[2023-02-11] MEDS: Acetaminophen 325 MG TAB PO PRN (10:08)
[2023-02-11] MEDS: Atorvastatin Calcium 20 MG TAB PO SCH (20:14)
[2023-02-12] MEDS: Acetaminophen 325 MG TAB PO PRN ×2 (03:00→08:21)
[2023-02-12] MEDS: Furosemide 40 MG/4 ML VIAL SLOW IVP SCH (05:47)
[2023-02-12] MEDS: Aspirin 325 MG TAB PO SCH ×2 (08:18→08:19)
[2023-02-12] MEDS: Polyethylene Glycol 3350 17 GM Packet PO SCH (08:18)
[2023-02-12] MEDS: Amiodarone 200 MG TAB PO SCH ×2 (08:19→20:09)
[2023-02-12] MEDS: Famotidine 20 MG TAB PO SCH ×2 (08:20→20:09)
[2023-02-12] MEDS: Benzonatate 100 MG CAP PO SCH ×3 (08:20→20:09)
[2023-02-12] MEDS: Spironolactone 25 MG TAB PO SCH (08:20)
[2023-02-12] MEDS: Empagliflozin 10 MG TAB PO SCH (08:21)
[2023-02-12] MEDS: traMADol HCl 50 MG TAB PO PRN ×2 (10:15→20:09)
[2023-02-12] MEDS ORDERED: Metolazone 5 MG TAB PO SCH (10:45)
[2023-02-12] MEDS ORDERED: Torsemide 20 MG TAB PO SCH ×2 (10:45→14:00)
[2023-02-12] MEDS ORDERED: Amiodarone 200 MG TAB PO SCH (11:00)
[2023-02-12] MEDS: Atorvastatin Calcium 20 MG TAB PO SCH (20:09)
[2023-02-13 05:18] LABS: BUN (Urea Nitrogen) 45 mg/dL (8.4-25.7); Calc. Creatinine Clearance 75 mL/min (70-130); Calcium 7.9 mg/dL (7.8-10.44); Estimated GFR 61; Glucose 137 mg/dL (80-115)
[2023-02-13 05:28] LABS: Anion Gap 17 mmol/L (10-20); Carbon Dioxide 34 mmol/L (23-31); Chloride 87 mmol/L (98-107); Potassium 2.7 mmol/L (3.5-5.1); Sodium 135 mmol/L (136-145)
[2023-02-13] MEDS ORDERED: Potassium Chloride 20 MEQ TAB PO SCH (06:30)
[2023-02-13] MEDS ORDERED: Spironolactone 25 MG TAB PO SCH (08:00)
[2023-02-13] MEDS: Polyethylene Glycol 3350 17 GM Packet PO SCH (08:54)
[2023-02-13] MEDS: Amiodarone 200 MG TAB PO SCH (08:54)
[2023-02-13] MEDS: Empagliflozin 10 MG TAB PO SCH (08:54)
[2023-02-13] MEDS: Famotidine 20 MG TAB PO SCH (08:54)
[2023-02-13] MEDS: Benzonatate 100 MG CAP PO SCH (08:54)
[2023-02-13] MEDS ORDERED: Torsemide 20 MG TAB PO SCH (09:00)
[2023-02-13] MEDS ORDERED: Amiodarone 200 MG TAB PO SCH (09:42)
[2023-02-13 11:29] VITALS: BP 136/61; TEMP 97.8
== END 2023-02-13 14:03 | disposition home or self-care (01) | DRG 219 ==
LOC: SURG A 01-31 05:49 → CCU 01-31 10:55 → 2NO 02-07 18:54
PROVIDERS: ADMIT Thoracic Surgery (Cardiothoracic Vascular Surgery); ATTEND Thoracic Surgery (Cardiothoracic Vascular Surgery)
PROC: 02RF08Z Replacement of Aortic Valve with Zooplastic Tissue, Open Approach (ICD-10-PCS; principal; 2023-01-31)
PROC: 02L70CK Occlusion of Left Atrial Appendage with Extraluminal Device, Open Approach (ICD-10-PCS; 2023-01-31)
PROC: 5A1221Z Performance of Cardiac Output, Continuous (ICD-10-PCS; 2023-01-31)
PROC: 021009W Bypass Coronary Artery, One Artery from Aorta with Autologous Venous Tissue, Open Approach (ICD-10-PCS; 2023-01-31)
PROC: 06BP0ZZ Excision of Right Saphenous Vein, Open Approach (ICD-10-PCS; 2023-01-31)
PROC: 6A550Z2 Pheresis of Platelets, Single (ICD-10-PCS; 2023-01-31)
PROC: 30233R1 Transfusion of Nonautologous Platelets into Peripheral Vein, Percutaneous Approach (ICD-10-PCS; 2023-01-31)
PROC: 4A133R1 Monitoring of Arterial Saturation, Peripheral, Percutaneous Approach (ICD-10-PCS; 2023-01-31)
DX: I35.0 Nonrheumatic aortic (valve) stenosis (principal); I50.33 Acute on chronic diastolic (congestive) heart failure; I48.0 Paroxysmal atrial fibrillation; I25.10 Atherosclerotic heart disease of native coronary artery without angina pectoris; E11.40 Type 2 diabetes mellitus with diabetic neuropathy, unspecified; Z79.01 Long term (current) use of anticoagulants; Z79.4 Long term (current) use of insulin; Z82.49 Family history of ischemic heart disease and other diseases of the circulatory system; Z83.3 Family history of diabetes mellitus; E78.5 Hyperlipidemia, unspecified
CPT/HCPCS: 36415; 36416; 36430; 71045; 80048; 82805; 82947; 85025; 85027; 85610; 85730; 86850; 86900; 86901; 93005; 93010; 93798; 94002; 94150; C1713; C1751; C1776; C1889; J0282; J1160; J1250; J1642; J1644; J1650; J1815; J1885; J1940; J2001; J2150; J2250; J2260; J2272; J2440; J2704; J2720; J3010; J3370; J3370-JW; J3475; J3480; J3490; J7070; J7120; P9035; P9045; S0017; S0028

== ENCOUNTER 2023-04-25 14:48 | Inpatient (IN) | payer OTHER, MEDICAID ==
[~2023-04-25 14:48] MED LIST: Iopamidol-370 76% 500 ML MDV (1 ML CHARGE) ONE
[2023-04-25 15:59] LABS: #Eosinphils 0.1 thou/uL (0.0-0.7); #Monocytes 0.6 thou/uL (0.11-0.59); #Neutrophils 8.8 thou/uL (1.40-6.50); %Basophils 0.4 % (0.0-1.0); %Eosinophils 0.7 % (0.0-10.0); %Monocytes 6.1 % (0.0-10.0); %Neutrophils 85.7 % (42.0-75.0); Hematocrit 34.6 % (42.0-52.0); Hemoglobin 10.5 g/dL (14.0-18.0); Mean Corpuscular HGB CONC 30.3 g/dL (32.0-36.0); Mean Corpuscular Hemoglobin 24.8 pg (27.0-31.0); Mean Corpuscular Volume 81.8 fl (78.0-98.0); Mean Platelet Volume 8.8 fL (7.4-10.4); Platelet Count 447 10x3/uL (130-400); RBC Distribution Width 16.4 % (11.5-14.5); Red Blood Cell (RBC) Count 4.23 mill/uL (4.70-6.10); White Blood Cell (WBC) Count 10.2 10x3/uL (4.8-10.8)
[2023-04-25] MEDS ORDERED: Sodium Chloride 0.9% 100 ML ONE (16:15)
[2023-04-25] MEDS ORDERED: Piperacillin/Tazobactam 4.5 GM VIAL ONE (16:15)
[2023-04-25 16:17] LABS: PTT 34.5 sec (22.9-36.1); Prothrombin Time 13.6 sec (12.0-14.7)
[2023-04-25 16:20] LABS: Lipase 10 U/L (8-78); Magnesium 2.5 mg/dL (1.6-2.6)
[2023-04-25 16:21] LABS: ALT (SGPT) 10 U/L (8-55); AST (SGOT) 15 U/L (5-34); Albumin 3.1 g/dL (3.4-4.8); Alkaline Phosphatase 170 U/L (40-110); Anion Gap 10 mmol/L (10-20); BUN (Urea Nitrogen) 20 mg/dL (8.4-25.7); Bilirubin, Total Less than 0.2 mg/dL (0.2-1.2); Calc. Creatinine Clearance 0 mL/min (70-130); Calcium 7.9 mg/dL (7.8-10.44); Carbon Dioxide 30 mmol/L (23-31); Chloride 99 mmol/L (98-107); Estimated GFR 71; Globulin 2.3 g/dL (2.4-3.5); Glucose 206 mg/dL (80-115); Potassium 4.7 mmol/L (3.5-5.1); Protein, Total 5.4 g/dL (5.8-8.1); Sodium 134 mmol/L (136-145)
[2023-04-25 16:22] LABS: Troponin I Less than 0.010 ng/mL (< 0.028)
[2023-04-25 16:46] LABS: Bacteria/HPF None Seen HPF (None Seen); Bilirubin Negative (Negative); Blood, Urine Negative (Negative); CAUTI Indications for Culture Fever or rigors; Clarity Clear (Clear); Glucose, Urine (Dipstick) Greater than 1000 mg/dL (Negative); Ketone, Urine Negative (Negative); Leukocyte Negative Leu/uL (Negative); Nitrite Negative (Negative); Protein, Urine (Dipstick) Negative (Neg-Trace); RBC/HPF 0-3 HPF (0-3); Specific Gravity, Urine 1.023 (1.002-1.036); Squamous Epithelial None Seen HPF (0-3); Urobilinogen Normal mg/dL (Less than 2); WBC/HPF None Seen HPF (0-3); pH, Urine 7.5 (5.0-9.0)
[2023-04-25 16:49] LABS: Urine Culture Reflex No No
[2023-04-25] MEDS ORDERED: Vancomycin (BATCH) 1.75 GM in Premix 1 BAG IVPB SCH (17:00)
[2023-04-25] MEDS ORDERED: Ondansetron ODT 4 MG TAB PO PRN (17:57)
[2023-04-25] MEDS ORDERED: Dextrose 50% Abboject 50 ML SYRINGE SLOW IVP PRN (17:57)
[2023-04-25] MEDS ORDERED: Dextrose 5% in Water 1,000 ML IV PRN (17:57)
[2023-04-25] MEDS ORDERED: Glucagon 1 MG/ML KIT IM PRN (17:57)
[2023-04-25] MEDS ORDERED: Ondansetron PF 4 MG/2 ML Vial IVP PRN (17:57)
[2023-04-25] MEDS ORDERED: HumaLOG 300 UNITS/3 ML VIAL SC PRN ×2 (17:57)
[2023-04-25] MEDS ORDERED: Acetaminophen 325 MG TAB PO PRN (17:57)
[2023-04-25] MEDS ORDERED: Electrolyte Replacement Protocol 1 EACH FS SCH (18:00)
[2023-04-25 21:04] VITALS: BMI 30.2
[2023-04-25] MEDS: Heparin 5,000 UNITS/ML VIAL SC SCH (23:36)
[2023-04-25] MEDS: Sodium Chloride 0.9% 1,000 ML IV SCH (23:36)
[2023-04-25] MEDS: Atorvastatin Calcium 20 MG TAB PO SCH (23:36)
[2023-04-25] MEDS: Cefepime 2 GM in Sodium Chloride 0.9% 100 ML IVPB SCH (23:37)
[2023-04-26 05:44] LABS: #Eosinphils 0.1 thou/uL (0.0-0.7); #Monocytes 0.8 thou/uL (0.11-0.59); #Neutrophils 6.4 thou/uL (1.40-6.50); %Basophils 0.4 % (0.0-1.0); %Eosinophils 1.8 % (0.0-10.0); %Monocytes 9.6 % (0.0-10.0); %Neutrophils 81.3 % (42.0-75.0); Hematocrit 31.5 % (42.0-52.0); Hemoglobin 9.3 g/dL (14.0-18.0); Mean Corpuscular HGB CONC 29.5 g/dL (32.0-36.0); Mean Corpuscular Hemoglobin 24.6 pg (27.0-31.0); Mean Corpuscular Volume 83.3 fl (78.0-98.0); Mean Platelet Volume 9.1 fL (7.4-10.4); Platelet Count 397 10x3/uL (130-400); RBC Distribution Width 16.6 % (11.5-14.5); Red Blood Cell (RBC) Count 3.78 mill/uL (4.70-6.10); White Blood Cell (WBC) Count 7.9 10x3/uL (4.8-10.8)
[2023-04-26 06:22] LABS: ALT (SGPT) 10 U/L (8-55); AST (SGOT) 13 U/L (5-34); Albumin 2.5 g/dL (3.4-4.8); Alkaline Phosphatase 134 U/L (40-110); Anion Gap 10 mmol/L (10-20); BUN (Urea Nitrogen) 14 mg/dL (8.4-25.7); Bilirubin, Total 0.2 mg/dL (0.2-1.2); Calc. Creatinine Clearance 107 mL/min (70-130); Calcium 8.3 mg/dL (7.8-10.44); Carbon Dioxide 26 mmol/L (23-31); Chloride 105 mmol/L (98-107); Estimated GFR 96; Globulin 2.8 g/dL (2.4-3.5); Glucose 77 mg/dL (80-115); Potassium 4.5 mmol/L (3.5-5.1); Protein, Total 5.3 g/dL (5.8-8.1); Sodium 136 mmol/L (136-145)
[2023-04-26] MEDS: Vancomycin 1 GM in Premix 1 BAG IVPB SCH ×2 (08:20→19:53)
[2023-04-26] MEDS: Amiodarone 200 MG TAB PO SCH (08:20)
[2023-04-26] MEDS: Aspirin 81 mg Enteric Coated Tablet PO SCH (08:20)
[2023-04-26] MEDS: Heparin 5,000 UNITS/ML VIAL SC SCH ×3 (08:20→19:53)
[2023-04-26] MEDS: HYDROcodone/Acetaminophen 5/325 mg Tablet PO PRN ×3 (08:21→21:31)
[2023-04-26] MEDS: Sodium Chloride 0.9% 1,000 ML IV SCH ×3 (08:21→19:53)
[2023-04-26] MEDS ORDERED: Ondansetron PF 4 MG/2 ML Vial ONE ×2 (08:26→11:45)
[2023-04-26] MEDS ORDERED: PROPOFOL 20 ML ONE (08:26)
[2023-04-26] MEDS ORDERED: fentaNYL 50 mcg/mL 1 mL Vial ONE ×2 (08:26→13:05)
[2023-04-26] MEDS ORDERED: Lidocaine 2% 6 ML (Jelly) SYR ONE (08:26)
[2023-04-26] MEDS ORDERED: Lidocaine 2% PF 5 ML VIAL ONE (08:26)
[2023-04-26] MEDS ORDERED: PHENYLEPHRINE-NS 100 MCG/ML 10 ML SYRINGE ONE ×2 (08:27→11:45)
[2023-04-26] MEDS ORDERED: FLU VACC QS2023(65UP)/MF59C/PF 60 MCG/0.5 ML SYRINGE IM ONE (09:00)
[2023-04-26] MEDS: Cefepime 2 GM in Sodium Chloride 0.9% 100 ML IVPB SCH ×2 (09:34→19:53)
[2023-04-26] MEDS ORDERED: Lidocaine 1% PF 5 ML VIAL ONE (11:45)
[2023-04-26] MEDS ORDERED: PROPOFOL 200 MG/20 ML VIAL ONE (11:45)
[2023-04-26] MEDS ORDERED: Bupivacaine PF 0.5% 30 ML VIAL ONE (12:00)
[2023-04-26] MEDS ORDERED: CEFAZOLIN 1 GM VIAL ONE (12:06)
[2023-04-26] MEDS ORDERED: traMADol HCl 50 MG TAB PO PRN (12:47)
[2023-04-26] MEDS: Atorvastatin Calcium 20 MG TAB PO SCH (19:54)
[2023-04-27] MEDS: HYDROcodone/Acetaminophen 5/325 mg Tablet PO PRN ×2 (03:41→11:23)
[2023-04-27] MEDS: Aspirin 81 mg Enteric Coated Tablet PO SCH (08:40)
[2023-04-27] MEDS: Amiodarone 200 MG TAB PO SCH (08:42)
[2023-04-27] MEDS: Heparin 5,000 UNITS/ML VIAL SC SCH (08:42)
[2023-04-27] MEDS ORDERED: Amoxicillin/Potassium Clav 500 MG TAB PO SCH (09:00)
[2023-04-27] MEDS ORDERED: Vancomycin (BATCH) 1.25 GM in Premix 1 BAG IVPB SCH (10:00)
[2023-04-27] MEDS: Vancomycin 1 GM in Premix 1 BAG IVPB SCH (10:36)
[2023-04-27] MEDS: Cefepime 2 GM in Sodium Chloride 0.9% 100 ML IVPB SCH (10:55)
[2023-04-27 15:58] VITALS: BP 152/52; TEMP 97.8
== END 2023-04-27 16:36 | disposition home health service (06) | DRG 240 ==
LOC: ERS 14:48 → ERHOLD 16:56 → INTOOBSV 16:56 → SURG A 20:32 → OBSVTOIN 04-26 10:45
PROVIDERS: ADMIT Student in an Organized Health Care Education/Training Program; ATTEND Internal Medicine
PROC: 0Y6M0ZF Detachment at Right Foot, Partial 5th Ray, Open Approach (ICD-10-PCS; principal; 2023-04-26)
DX: E11.52 Type 2 diabetes mellitus with diabetic peripheral angiopathy with gangrene (principal); L03.115 Cellulitis of right lower limb; M86.171 Other acute osteomyelitis, right ankle and foot; E11.69 Type 2 diabetes mellitus with other specified complication; I25.10 Atherosclerotic heart disease of native coronary artery without angina pectoris; E78.5 Hyperlipidemia, unspecified; E11.40 Type 2 diabetes mellitus with diabetic neuropathy, unspecified; I35.0 Nonrheumatic aortic (valve) stenosis; I10 Essential (primary) hypertension; I48.0 Paroxysmal atrial fibrillation; Z95.1 Presence of aortocoronary bypass graft; Z79.899 Other long term (current) drug therapy; Z79.82 Long term (current) use of aspirin; Z98.890 Other specified postprocedural states; Z90.2 Acquired absence of lung [part of]; Z95.2 Presence of prosthetic heart valve; Z82.49 Family history of ischemic heart disease and other diseases of the circulatory system; Z83.3 Family history of diabetes mellitus
CPT/HCPCS: 36415; 36416; 71045; 75635; 80053; 80202; 81001; 83605; 83690; 83735; 84484; 85025; 85610; 85730; 86140; 87040; 87070; 87205; 88305; 88311; 93005; 96365; 96366; 96367; 96372; 96375; 96376; 97139; G0378; J0690; J0692; J1644; J2001; J2405; J2543; J2704; J3010; J3370; J3370-JW; J3490; J7050; Q9967; S0020

== ENCOUNTER 2023-06-29 18:57 | Emergency (ER) | payer OTHER, MEDICAID ==
[2023-06-29 20:35] LABS: #Eosinphils 0.1 thou/uL (0.0-0.7); #Monocytes 0.9 thou/uL (0.11-0.59); #Neutrophils 7.5 thou/uL (1.40-6.50); %Basophils 0.3 % (0.0-1.0); %Eosinophils 1.5 % (0.0-10.0); %Lymphocytes 5.6 % (21.0-51.0); %Monocytes 9.5 % (0.0-10.0); %Neutrophils 82.2 % (42.0-75.0); Hematocrit 34.9 % (42.0-52.0); Hemoglobin 10.5 g/dL (14.0-18.0); Mean Corpuscular HGB CONC 30.1 g/dL (32.0-36.0); Mean Corpuscular Hemoglobin 24.1 pg (27.0-31.0); Platelet Count 376 10x3/uL (130-400); RBC Distribution Width 18.6 % (11.5-14.5); Red Blood Cell (RBC) Count 4.36 mill/uL (4.70-6.10); White Blood Cell (WBC) Count 9.1 10x3/uL (4.8-10.8)
[2023-06-29 21:05] LABS: ALT (SGPT) 15 U/L (8-55); AST (SGOT) 18 U/L (5-34); Albumin 2.9 g/dL (3.4-4.8); Alkaline Phosphatase 103 U/L (40-110); Anion Gap 6 mmol/L (10-20); BUN (Urea Nitrogen) 28 mg/dL (8.4-25.7); Bilirubin, Total 0.2 mg/dL (0.2-1.2); Calc. Creatinine Clearance 0 mL/min (70-130); Calcium 8.4 mg/dL (7.8-10.44); Carbon Dioxide 32 mmol/L (23-31); Chloride 99 mmol/L (98-107); Estimated GFR 94; Globulin 3.7 g/dL (2.4-3.5); Glucose 133 mg/dL (80-115); Potassium 5.1 mmol/L (3.5-5.1); Protein, Total 6.6 g/dL (5.8-8.1); Sodium 132 mmol/L (136-145)
[2023-06-29] MEDS ORDERED: Metoclopramide HCl 10 MG TAB ONE (21:14)
== END 2023-06-29 21:30 | disposition home or self-care (01) ==
LOC: ERS 18:57
DX: R51.9 Headache, unspecified (principal); I10 Essential (primary) hypertension; E78.5 Hyperlipidemia, unspecified; E11.42 Type 2 diabetes mellitus with diabetic polyneuropathy; Z79.82 Long term (current) use of aspirin; Z79.899 Other long term (current) drug therapy
CPT/HCPCS: 36415; 36416; 80053; 85025; 93005

== ENCOUNTER 2023-08-16 16:38 | Emergency (ER) | payer OTHER, MEDICAID ==
[2023-08-16 18:23] LABS: #Eosinphils 0.1 thou/uL (0.0-0.7); #Monocytes 1.1 thou/uL (0.11-0.59); #Neutrophils 12.1 thou/uL (1.40-6.50); %Basophils 0.1 % (0.0-1.0); %Eosinophils 0.4 % (0.0-10.0); %Lymphocytes 3.6 % (21.0-51.0); %Monocytes 7.9 % (0.0-10.0); %Neutrophils 86.6 % (42.0-75.0); Hematocrit 34.8 % (42.0-52.0); Hemoglobin 10.6 g/dL (14.0-18.0); Mean Corpuscular HGB CONC 30.5 g/dL (32.0-36.0); Mean Corpuscular Hemoglobin 24.7 pg (27.0-31.0); Mean Corpuscular Volume 81.1 fl (78.0-98.0); Mean Platelet Volume 8.8 fL (7.4-10.4); Platelet Count 542 10x3/uL (130-400); RBC Distribution Width 19.3 % (11.5-14.5); Red Blood Cell (RBC) Count 4.29 mill/uL (4.70-6.10)
[2023-08-16] MEDS ORDERED: Cefepime 2 GM VIAL ONE (18:36)
[2023-08-16] MEDS ORDERED: Sodium Chloride 0.9% 100 ML ONE (18:36)
[2023-08-16 18:51] LABS: ALT (SGPT) 7 U/L (8-55); AST (SGOT) 13 U/L (5-34); Albumin 2.9 g/dL (3.4-4.8); Alkaline Phosphatase 119 U/L (40-110); Anion Gap 15 mmol/L (10-20); BUN (Urea Nitrogen) 20 mg/dL (8.4-25.7); Bilirubin, Total 0.3 mg/dL (0.2-1.2); Calc. Creatinine Clearance 0 mL/min (70-130); Calcium 8.8 mg/dL (7.8-10.44); Carbon Dioxide 28 mmol/L (23-31); Chloride 95 mmol/L (98-107); Estimated GFR 94; Glucose 117 mg/dL (80-115); Potassium 4.3 mmol/L (3.5-5.1); Protein, Total 6.9 g/dL (5.8-8.1); Sodium 134 mmol/L (136-145)
[2023-08-16] MEDS ORDERED: Morphine 4 MG/ML VIAL ONE (19:29)
[2023-08-16] MEDS ORDERED: Vancomycin 1 GM/200 ML (FROZEN) BAG ONE (20:08)
== END 2023-08-16 21:31 | disposition home or self-care (01) ==
LOC: ERS 16:38
DX: L03.115 Cellulitis of right lower limb (principal); E11.42 Type 2 diabetes mellitus with diabetic polyneuropathy; E78.5 Hyperlipidemia, unspecified; I10 Essential (primary) hypertension; Z79.82 Long term (current) use of aspirin; Z79.899 Other long term (current) drug therapy
CPT/HCPCS: 73590; 80053; 83605; 85025; 87040; 93005; 93971; J3370; 36415; 96365; 96367; 96375; J0692; J2270; J3490

== ENCOUNTER 2023-08-18 | Inpatient (IN) | payer OTHER, MEDICAID | END 2023-08-25 19:53 | disposition home or self-care (01) | DRG 240 | PROVIDERS: ADMIT Family Medicine | PROC: 0Y6M0Z9 Detachment at Right Foot, Partial 1st Ray, Open Approach (ICD-10-PCS; principal; 2023-08-20) | PROC: 0Y6M0ZB Detachment at Right Foot, Partial 2nd Ray, Open Approach (ICD-10-PCS; 2023-08-20) | PROC: 0Y6M0ZC Detachment at Right Foot, Partial 3rd Ray, Open Approach (ICD-10-PCS; 2023-08-20) | PROC: 3E033XZ Introduction of Vasopressor into Peripheral Vein, Percutaneous Approach (ICD-10-PCS; 2023-08-20) | PROC: 02HV33Z Insertion of Infusion Device into Superior Vena Cava, Percutaneous Approach (ICD-10-PCS; 2023-08-24) | PROC: B5181ZA Fluoroscopy of Superior Vena Cava using Low Osmolar Contrast, Guidance (ICD-10-PCS; 2023-08-24) | PROC: 3E04329 Introduction of Other Anti-infective into Central Vein, Percutaneous Approach (ICD-10-PCS; 2023-08-24) | PROC: B548ZZA Ultrasonography of Superior Vena Cava, Guidance (ICD-10-PCS; 2023-08-24) | DX: E11.52 Type 2 diabetes mellitus with diabetic peripheral angiopathy with gangrene (principal); L03.115 Cellulitis of right lower limb; M00.9 Pyogenic arthritis, unspecified; M86.8X7 Other osteomyelitis, ankle and foot; E11.69 Type 2 diabetes mellitus with other specified complication; S92.331A Displaced fracture of third metatarsal bone, right foot, initial encounter for closed fracture; I10 Essential (primary) hypertension; E78.5 Hyperlipidemia, unspecified; E11.40 Type 2 diabetes mellitus with diabetic neuropathy, unspecified; I25.10 Atherosclerotic heart disease of native coronary artery without angina pectoris; I48.91 Unspecified atrial fibrillation; B95.62 Methicillin resistant Staphylococcus aureus infection as the cause of diseases classified elsewhere; B96.5 Pseudomonas (aeruginosa) (mallei) (pseudomallei) as the cause of diseases classified elsewhere; I35.0 Nonrheumatic aortic (valve) stenosis; Z79.4 Long term (current) use of insulin; Z89.421 Acquired absence of other right toe(s); Z79.82 Long term (current) use of aspirin; Z79.899 Other long term (current) drug therapy; Z95.1 Presence of aortocoronary bypass graft; Z95.2 Presence of prosthetic heart valve; Z90.2 Acquired absence of lung [part of]; Z83.3 Family history of diabetes mellitus; Z82.49 Family history of ischemic heart disease and other diseases of the circulatory system; X58.XXXA Exposure to other specified factors, initial encounter; E11.42 Type 2 diabetes mellitus with diabetic polyneuropathy; Z01.812 Encounter for preprocedural laboratory examination ==

== ENCOUNTER 2024-05-11 00:57 | Emergency (ER) | payer OTHER, MEDICAID ==
[2024-05-11 02:02] LABS: #Basophils 0.03 10x3/uL (0.0-0.2); %Basophils 0.4 % (0.0-1.0); %Eosinophils 1.5 % (0.0-10.0); %Lymphocytes 6.9 % (21.0-51.0); %Monocytes 10.3 % (0.0-10.0); %Neutrophils 80.4 % (42.0-75.0); Hemoglobin 14.2 g/dL (14.0-18.0); Mean Corpuscular Hemoglobin 31.1 pg (27.0-31.0); Mean Corpuscular Volume 94.1 fL (78.0-98.0); Mean Platelet Volume 9.7 fL (7.4-10.4); Platelet Count 217 10x3/uL (130-400); RBC Distribution Width 13.6 % (11.5-14.5); Red Blood Cell (RBC) Count 4.57 mill/uL (4.70-6.10)
[2024-05-11 02:15] LABS: ALT (SGPT) 13 U/L (8-55); Albumin 2.6 g/dL (3.4-4.8); Alkaline Phosphatase 87 U/L (40-110); Anion Gap 11 mmol/L (10-20); BUN (Urea Nitrogen) 20 mg/dL (8.4-25.7); Bilirubin, Total 0.3 mg/dL (0.2-1.2); Calc. Creatinine Clearance 0 mL/min (70-130); Calcium 8.4 mg/dL (7.8-10.44); Carbon Dioxide 25 mmol/L (23-31); Chloride 102 mmol/L (98-107); Estimated GFR 95; Globulin 3.3 g/dL (2.4-3.5); Glucose 140 mg/dL (80-115); Potassium 4.4 mmol/L (3.5-5.1); Protein, Total 5.9 g/dL (5.8-8.1); Sodium 134 mmol/L (136-145)
[2024-05-11] MEDS ORDERED: predniSONE 20 MG TAB ONE (02:26)
[2024-05-11] MEDS ORDERED: Ketorolac Tromethamine 30 MG (1 mL) VIAL ONE (02:27)
[2024-05-11] MEDS ORDERED: valACYclovir 500 MG TAB ONE (02:28)
[2024-05-11 02:38] LABS: AST (SGOT) 16 U/L (5-34)
[2024-05-11 03:25] LABS: Troponin I Less than 0.010 ng/mL (< 0.028)
[2024-05-11] MEDS ORDERED: Morphine 4 MG/ML VIAL ONE (04:27)
== END 2024-05-11 04:43 | disposition home or self-care (01) ==
LOC: ERS 00:57
DX: B02.9 Zoster without complications (principal); E11.9 Type 2 diabetes mellitus without complications; I10 Essential (primary) hypertension
CPT/HCPCS: 71045; 80053; 84484; 85025; 93005; 94760; J1885; J2272; 36415; 96374; 96375; J7512

== ENCOUNTER 2024-07-22 10:52 | Emergency (ER) | payer OTHER ==
[2024-07-22 11:37] LABS: #Basophils 0.03 10x3/uL (0.0-0.2); %Basophils 0.4 % (0.0-1.0); %Eosinophils 1.8 % (0.0-10.0); %Lymphocytes 9.8 % (21.0-51.0); %Monocytes 8.1 % (0.0-10.0); %Neutrophils 79.5 % (42.0-75.0); Hematocrit 41.7 % (42.0-52.0); Hemoglobin 14.1 g/dL (14.0-18.0); Mean Corpuscular HGB CONC 33.8 g/dL (32.0-36.0); Mean Corpuscular Hemoglobin 32.3 pg (27.0-31.0); Mean Corpuscular Volume 95.6 fL (78.0-98.0); Mean Platelet Volume 9.8 fL (7.4-10.4); Platelet Count 286 10x3/uL (130-400); RBC Distribution Width 13.1 % (11.5-14.5); Red Blood Cell (RBC) Count 4.36 mill/uL (4.70-6.10)
[2024-07-22 11:51] LABS: CRP,High Sensitivity (Inhouse) 0.28 mg/dL (< or = 0.5)
[2024-07-22 11:52] LABS: ALT (SGPT) 11 U/L (Less than 45); AST (SGOT) 25 U/L (11-34); Albumin 3.6 g/dL (3.1-4.5); Alkaline Phosphatase 118 U/L (40-110); Anion Gap 13 mmol/L (10-20); BUN (Urea Nitrogen) 23 mg/dL (8.4-25.7); Bilirubin, Total 0.4 mg/dL (0.3-1.2); Calc. Creatinine Clearance 0 mL/min (70-130); Calcium 9.4 mg/dL (7.8-10.44); Carbon Dioxide 30 mmol/L (23-31); Chloride 102 mmol/L (98-107); Estimated GFR 93; Globulin 3.7 g/dL (2.4-3.5); Glucose 156 mg/dL (80-115); Potassium 4.6 mmol/L (3.5-5.1); Protein, Total 7.3 g/dL (5.8-8.1); Sodium 140 mmol/L (136-145)
[2024-07-22] MEDS ORDERED: Ketorolac Tromethamine 30 MG (1 mL) VIAL ONE (12:51)
[2024-07-22] MEDS ORDERED: Acetaminophen 500 MG TAB ONE (12:51)
== END 2024-07-22 13:45 | disposition home or self-care (01) ==
LOC: ERS 10:52
DX: E11.621 Type 2 diabetes mellitus with foot ulcer (principal); L97.429 Non-pressure chronic ulcer of left heel and midfoot with unspecified severity; I49.3 Ventricular premature depolarization; E11.42 Type 2 diabetes mellitus with diabetic polyneuropathy; I10 Essential (primary) hypertension; E78.5 Hyperlipidemia, unspecified; Z55.0 Illiteracy and low-level literacy; Z79.82 Long term (current) use of aspirin; Z79.4 Long term (current) use of insulin; Z79.899 Other long term (current) drug therapy
CPT/HCPCS: 73630; 80053; 85025; 86141; J1885; 36415; 96372; 99283

== ENCOUNTER 2025-03-01 18:29 | Emergency (ER) | payer MEDICAID, MEDICARE, OTHER ==
[2025-03-01 19:28] LABS: #Basophils 0.03 10x3/uL (0.0-0.2); #Eosinophils 0.13 10x3/uL (0.0-0.7); #Monocytes 0.46 10x3/uL (0.11-0.59); #Neutrophils 6.14 10x3/uL (1.40-6.50); %Basophils 0.4 % (0.0-1.0); %Eosinophils 1.8 % (0.0-10.0); %Lymphocytes 5.2 % (21.0-51.0); %Monocytes 6.4 % (0.0-10.0); %Neutrophils 85.8 % (42.0-75.0); Hematocrit 39.6 % (42.0-52.0); Hemoglobin 13.1 g/dL (14.0-18.0); Mean Corpuscular Hemoglobin 30.2 pg (27.0-31.0); Mean Corpuscular Volume 91.2 fL (78.0-98.0); Platelet Count 279 10x3/uL (130-400); Red Blood Cell (RBC) Count 4.34 mill/uL (4.70-6.10); White Blood Cell (WBC) Count 7.16 10x3/uL (4.8-10.8)
[2025-03-01 19:54] LABS: ALT (SGPT) 12 U/L (Less than 45); AST (SGOT) 21 U/L (11-34); Albumin 2.5 g/dL (3.1-4.5); Alkaline Phosphatase 176 U/L (40-110); Anion Gap 10 mmol/L (10-20); BUN (Urea Nitrogen) 16 mg/dL (8.4-25.7); Bilirubin, Total 0.3 mg/dL (0.3-1.2); Calc. Creatinine Clearance 0 mL/min (70-130); Calcium 8.2 mg/dL (7.8-10.44); Carbon Dioxide 31 mmol/L (23-31); Chloride 98 mmol/L (98-107); Globulin 3.5 g/dL (2.4-3.5); Glucose 165 mg/dL (80-115); Potassium 4.3 mmol/L (3.5-5.1); Sodium 135 mmol/L (136-145)
[2025-03-01 20:56] LABS: Bacteria/HPF None Seen HPF (None Seen); CAUTI Indications for Culture Pelvic or flank pain; Glucose, Urine (Dipstick) Normal (Negative); Leukocyte Negative Leu/uL (Negative); Protein, Urine (Dipstick) Negative (Neg-Trace); RBC/HPF None Seen HPF (0-3); Specific Gravity, Urine 1.009 (1.002-1.036); WBC/HPF None Seen HPF (0-3)
[2025-03-01 20:58] LABS: Urine Culture Reflex No No
[2025-03-01] MEDS ORDERED: Furosemide 40 MG (4 mL) VIAL ONE (21:00)
[2025-03-01] MEDS ORDERED: cefTRIAXone (ROCEPHIN) 2 GM VIAL ONE (21:13)
== END 2025-03-01 21:50 | disposition home or self-care (01) ==
LOC: ERS 18:29
DX: L03.116 Cellulitis of left lower limb (principal); L03.115 Cellulitis of right lower limb; I11.0 Hypertensive heart disease with heart failure; I50.9 Heart failure, unspecified; E11.42 Type 2 diabetes mellitus with diabetic polyneuropathy
CPT/HCPCS: 71045; 80053; 81001; 83880; 84484; 85025; 93005; 94760; J0696; J1940; 96374; 96375